=== PATIENT | male | born 1955 | race Caucasian/White ===

== ENCOUNTER 2020-07-01 13:52 | Outpatient (REF) | payer MEDICARE, MEDICAID, SELFPAY | END 2020-07-01 13:53 | disposition home or self-care (01) | LOC: HO.HAP 13:52 | PROVIDERS: Visit Provider Internal Medicine | DX: Z46.1 Encounter for fitting and adjustment of hearing aid (principal) | CPT/HCPCS: 92700 ==

== ENCOUNTER 2020-07-15 09:06 | Outpatient (REF) | payer MEDICARE, MEDICAID, SELFPAY ==
--- NOTE | 2020-07-15 10:29 | MHC.AU.P13 ---
Hearing Instrument Follow-Up- Binaural Date of Visit: 07/15/20 Right Ear: Student Assistance Counselor: Phonak Model: BOLERO B50-WA Serial Number: [id number] Warranty: 12/13/2019 Battery Size: Rechargeable Color: SANDALWOOD Tubing: #2 Type of Mold: SLIM TIP Dispensed By: [facility] Date of Fittin09/27/2017 Left Ear: Student Assistance Counselor: Phonak Model: BOLERO B50-WA Serial Number: [id number] Warranty: 12/13/2019 Battery Size: Rechargeable Color: SANDALWOOD Tubing: #2 Type of Mold: SLIM TIP [id number] Dispensed By: [facility] Date of Fittin09/27/2017 Follow-Up Summary: Patient arrived, accompanied by his aide, to merchandise pickup/receiving associate his right hearing aid with new slim tip attached. New slim tip fits well. At first, patient said he could not hear from the instrument. Otoscopy performed- partial cerumen occlusion that was likely lining up with the opening of the slim tip. A lighted disposable curette was used to remove cerumen without incidient. Patient reported the hearing aid sounded back to normal after cerumen removal. Recommendations: Hearing instrument follow-up or maintenance as needed. Patient's last audiological evaluation was 06/27/2019. His aide will request an order from the PCP for an updated audio eval. Diagnosis Code(s): Primary Diagnosis: H90.3 Bilateral Sensorineural Hearing Loss Secondary Diagnosis: N/A Signature: Provider: David Greene, [facility]
== END 2020-07-15 09:07 | disposition home or self-care (01) ==
LOC: HO.HAP 09:06
PROVIDERS: PCP Internal Medicine; Referring Provider Internal Medicine; Visit Provider Internal Medicine
DX: Z46.1 Encounter for fitting and adjustment of hearing aid (principal)
CPT/HCPCS: V5264

== ENCOUNTER 2020-10-14 08:29 | Outpatient (REF) | payer MEDICARE, MEDICAID, SELFPAY ==
--- NOTE | 2020-10-14 14:30 | MHC.AU.P13 ---
Adult Audiological Evaluation Date of Visit: 10/14/20 Reason for Appointment: Audiological evaluation to monitor the status of Mr. Petit's hearing loss. He denies any significant changes to his hearing or medical history. He notes that the left aid is currently not working. Previous Hearing Test Results: [facility], 06/27/2019- Mild sloping to moderately severe sensorineural hearing loss bilaterally. Ear History: History of Ear Wax Buildup: Both Ears Medical History: Medical History: Developmental Disorder/Delay Medication List: Fish Oil 2000mg, Calcium/Vitamin D 600/400, Omeprazole 20mg, Multivitamin, Escitalopram 20 mg, Atorvastatin 20 mg, Divalproex Sodium 1000mg Hearing Instrument History- Right Ear: Job Superintendent: [employer] Model: SlickLogin B50-AL Serial Number: [id number] Battery Size: Rechargeable Repair Warranty: 12/13/2019 Loss and Damage Warranty: 12/13/2019 Dispensed By: [facility] Date of Fittin09/27/2017 Hearing Instrument History- Left Ear: Job Superintendent: [employer] Model: SlickLogin B50-AL Serial Number: [id number] Battery Size: Rechargeable Warranty: 12/13/2019 Loss and Damage Warranty: 12/13/2019 Dispensed By: [facility] Date of Fittin09/27/2017 Otoscopy: Right Ear: Occluded with cerumen. Removed successfully with a lighted curette. Left Ear: Occluded with cerumen. Removed successfully with a lighted curette. Tympanometry: Tympanometry performed due to: To determine if cerumen blockage is fully occluding canal(s) Right Ear: Reduced Middle Ear Compliance (Type As) Left Ear: Reduced Middle Ear Compliance (Type As) Hearing Evaluation: Transducer(s) Used: Insert Earphones, Bone Conduction Method: Conventional Audiometry Stimuli Used: Pure Tones Right Ear: Description of Hearing: Mild sloping to moderately severe sensorineural hearing loss from 250-8000 Hz. Left Ear: Description of Hearing: Normal hearing from 250-500, sloping to a mild to moderate sensorineural hearing loss from 8586-5982 Hz. Speech Recognition Threshold (SRT): Method Used: Monitored Live Voice Stimuli Used: Spondee Words Right Ear: 35 dBHL Left Ear: 30 dBHL Word Discrimination: Method: Recorded Lists Word Lists Used: NU-6 Right Ear: 92% at 75 dBHL Left Ear: 92% at 75 dBHL Comparison: Compared to the most recent evaluation: Hearing is stable. Recommendations: Audiological re-evaluation in one year. New earmold was fit today. Reprogrammed aids and ran a new feedback test. Hearing aid maintenance was performed. Aids are in good working condition. Diagnosis: Primary Diagnosis: H90.3 Bilateral Sensorineural Hearing Loss Services Performed: Comprehensive Audiological Evaluation (CPT 15360) Tympanometry (CPT 77744) Signature: Provider: David Vincent, CCC-A
== END 2020-10-14 08:30 | disposition home or self-care (01) ==
LOC: HO.SH 08:29
PROVIDERS: Visit Provider Internal Medicine
DX: Z46.1 Encounter for fitting and adjustment of hearing aid (principal); H90.3 Sensorineural hearing loss, bilateral
CPT/HCPCS: 92557; 92567; 92593; 99499; V5264

== ENCOUNTER 2020-11-13 08:16 | Outpatient (REF) | payer MEDICARE, MEDICAID, SELFPAY ==
--- NOTE | 2020-11-13 10:01 | MHC.AU.P13 ---
Hearing Instrument Follow-Up- Binaural Date of Visit: 11/13/20 Right Ear: Power Generation Turbine Room Operator: Phonak Model: BOLERO B50-ID Serial Number: [id number] Repair Warranty: 12/13/2019 Loss and Damage Warranty: 12/13/2019 Battery Size: Rechargeable Color: SANDALWOOD Tubing: #2 Type of Mold: SLIM TIP [id number] Warranty: 02/06/2021 Left Ear: Power Generation Turbine Room Operator: Phonak Model: BOLERO B50-ID Serial Number: [id number] RepairWarranty: 12/13/2019 Loss and Damage Warranty: 12/13/2019 Battery Size: Rechargeable Color: SANDALWOOD Tubing: #2 Type of Mold: SLIM TIP [id number] Follow-Up Summary: Patient has been reporting that his left slim tip is causing pain. His aide also reported that he seems to have a difficult time putting in the left slim tip. He questioned if it is actually for the right ear, because it seems to be facing in the same way as the right slim tip. His aide also requested a new impression for the right side to improve the fit. Inspection revealed that it was a left-sided slim tip and a left-sided slim tube; however, the tubing looked like it had been twisted around, and was now stuck facing in a different position. A new size 2 slim tube was placed in the left slim tip. Otoscopy revealed a small amount of non-occluding cerumen bilaterally. No redness or swelling noted in canals. Impressions were taken bilaterally without incident. Recommendations: Patient's aide will be contacted when the new slim tips have arrived. Diagnosis Code(s): Primary Diagnosis: H90.3 Bilateral Sensorineural Hearing Loss Signature: Provider: David Greene, CCC-A
--- NOTE | 2020-12-04 13:02 | MHC.AU.MED ---
Medical Clearance for Hearing Instrumentation Date: 12/04/20 Patient Name: Edenilson Petit Date of : 1955 Referring Provider: Salvatore Jose MD We have seen your patient on 10/14/2020 and have determined that they are a candidate for amplification (See accompanying report). Specifically, they would benefit from: Hearing aid use in both ears There is a statute that addresses Medical Evaluation Requirements prior to fitting a patient with a hearing aid. According to [place] statute [facility] CMR:6.03(1), (a) General. Except as provided in 265 CMR 6.03(1)(b), a teacher hearing impaired shall not sell a hearing aid unless the prospective user has presented to the teacher hearing impaired a written statement signed by a licensed physician that states that the patient's hearing loss has been medically evaluated and the patient may be considered a candidate for a hearing aid. The medical evaluation must have taken place within the preceding six months. Please note: Due to the [place] Statute referenced above, we cannot accept a signature other than that of a licensed physician. BULLET SLUG CASTING MACHINE OPERATOR and PA signatures cannot be accepted. I am in agreement with the above recommendation. There is no medical contraindication for hearing instrumentation. Physician Signature Date Physician Name (Printed)
== END 2020-11-13 08:17 | disposition home or self-care (01) ==
LOC: HO.HAP 08:16
PROVIDERS: Visit Provider Internal Medicine
DX: Z46.1 Encounter for fitting and adjustment of hearing aid (principal); H90.3 Sensorineural hearing loss, bilateral
CPT/HCPCS: V5275

== ENCOUNTER 2020-12-18 08:54 | Outpatient (REF) | payer MEDICARE, MEDICAID, SELFPAY ==
--- NOTE | 2020-12-18 10:40 | MHC.AU.HFA ---
Hearing Instrument Fitting- Adult Date of Visit: 12/18/20 Hearing Instruments/Items Dispensed Today: Right Ear: Assembler Seat: [employer] Model: LaunchpilotsARMANI B50-NE Serial Number: [id number] Repair Warranty: 03/09/2024 Loss and Damage Warranty: 03/09/2024 Battery Size: Rechargeable Color: SANDALWOOD Crop Duster Helper: Tubing: #2 Type of Mold: SLIM TIP [id number] (Warranty of mold: 04/10/2021) Left Ear: Type of Mold: SLIM TIP [id number] (Warranty of mold: 04/10/2021) Summary of Fitting: Patient arrived to fit his new right-sided hearing aid, which is replacing the one that was lost. New molds were ordered for both instruments. The lost instrument was initially marked as the left side, when it was actually the right side that was lost. Programmed the new instrument for the right ear, and connected as same time as left so the instruments could communicate together. New slim tips were placed on the instruments. Patient reported the molds were much more comfortable. ACC codes entered for slim tips, and feedback real estate transaction manager re-run. He reported the sound quality was good. Recommendations: Recommendations: Hearing instrument maintenance as needed. Audiological re-evaluation recommended in November 2021. Diagnosis Code(s): Primary Diagnosis: H90.3 Bilateral Sensorineural Hearing Loss Signature: Provider: David Greene, CCC-A
== END 2020-12-18 08:55 | disposition home or self-care (01) ==
LOC: HO.HAP 08:54
PROVIDERS: Visit Provider Internal Medicine
DX: Z46.1 Encounter for fitting and adjustment of hearing aid (principal); H90.3 Sensorineural hearing loss, bilateral
CPT/HCPCS: V5011; V5241; V5257

== ENCOUNTER 2021-01-08 08:07 | Outpatient (REF) | payer MEDICARE, MEDICAID, SELFPAY ==
--- NOTE | 2021-01-08 16:07 | MHC.AU.HFU ---
Hearing Instrument Follow-Up- Binaural Date of Visit: 01/08/21 Right Ear: Security Systems Technician: Phonak Model: [facility] B50-AZ Serial Number: [id number] Repair Warranty: 03/09/2024 Loss and Damage Warranty: 03/09/2024 Battery Size: Rechargeable Color: SANDALWOOD Tubing: #2 Type of Mold: SLIM TIP [id number] Warranty: 04/10/2021 Left Ear: Security Systems Technician: Phonak Model: [facility] B50-AZ Serial Number: [id number] Repair Warranty: 12/13/2019 Loss and Damage Warranty: 12/13/2019 Battery Size: Rechargeable Color: SANDALWOOD Tubing: #2 Type of Mold: SLIM TIP [id number] Warranty: 04/10/2021 Follow-Up Summary: Patient reports that the new left-sided slim tip has been popping out of his ear. A new impression was taken of the left ear without incident. It will be sent to [employer] along with the slim tip for remake. Patient has the hearing aid itself, and has attached his old slim tip to it for the time being. Recommendations: Recommendations: Patient will be contacted when materials have arrived. Signature: Provider: David Greene, [facility]-A
== END 2021-01-08 08:08 | disposition home or self-care (01) ==
LOC: HO.HAP 08:07
PROVIDERS: Visit Provider Internal Medicine
DX: Z46.1 Encounter for fitting and adjustment of hearing aid (principal); H90.3 Sensorineural hearing loss, bilateral
CPT/HCPCS: V5275

== ENCOUNTER 2021-01-24 08:36 | Outpatient (REF) | payer MEDICARE, MEDICAID, SELFPAY ==
--- NOTE | 2021-01-24 08:58 | MHC.AU.HFU ---
Hearing Instrument Follow-Up- Binaural Date of Visit: 01/24/21 Right Ear: Radar Engineer: Phonak Model: BOLERO B50-WI Serial Number: [id number] Repair Warranty: 03/09/2024 Loss and Damage Warranty: 03/09/2024 Battery Size: Rechargeable Color: SANDALWOOD Tubing: #2 Type of Mold: SLIM TIP [id number] Warranty: 04/10/2021 Dispensed By: [facility] Date of Fittin09/27/2017 Left Ear: Radar Engineer: Phonak Model: BOLERO B50-W[place] Serial Number: [id number] Repair Warranty: 12/13/2019 Loss and Damage Warranty: 12/13/2019 Battery Size: Rechargeable Color: SANDALWOOD Tubing: #2 Type of Mold: SLIM TIP [id number] Warranty: 04/10/2021 Dispensed By: [facility] Date of Fittin09/27/2017 Follow-Up Summary: Patient was seen today for fitting of remade left slimtip earmold. New earmold was attached. Acoustic parameters were updated with the new ACC code and a new feedback test was run. Patient reports comfortable fit and sound quality. Earmold appears to stay in well and is secure. Old earmold returned to patient for back-up. Recommendations: Recommendations: Hearing instrument maintenance in 6 months, or sooner if needed. Please contact our clinic with any questions or concerns. Patient will call if problems persist. Diagnosis Code(s): Primary Diagnosis: H90.3 Bilateral Sensorineural Hearing Loss Signature: Provider: David Vincent, CCC-A
== END 2021-01-24 08:37 | disposition home or self-care (01) ==
LOC: HO.HAP 08:36
PROVIDERS: Visit Provider Internal Medicine
DX: Z13.89 Encounter for screening for other disorder (principal)

== ENCOUNTER 2022-05-11 13:45 | Outpatient (REF) | payer MEDICARE, MEDICAID, SELFPAY | END 2022-05-11 13:46 | disposition home or self-care (01) | LOC: HO.HAP 13:45 | PROVIDERS: Visit Provider Internal Medicine | DX: Z13.89 Encounter for screening for other disorder (principal) ==

== ENCOUNTER 2022-05-19 16:10 | Outpatient (REF) | payer MEDICARE, MEDICAID, SELFPAY | END 2022-05-19 16:11 | disposition home or self-care (01) | LOC: HO.HAP 16:10 | PROVIDERS: Visit Provider Internal Medicine | DX: Z13.89 Encounter for screening for other disorder (principal) ==

== ENCOUNTER 2022-05-28 09:46 | Outpatient (REF) | payer MEDICARE, MEDICAID, SELFPAY ==
--- NOTE | 2022-08-13 09:01 | MHC.AU.HFU ---
Hearing Instrument Follow-Up- Binaural Date of Visit: 05/28/22 Right Ear: Cargo Agent: Phonak Model: BOLERO B50-TN Serial Number: [id number] Battery Size: Rechargeable Dispensed By: [facility] Date of Fittin09/27/2017 Left Ear: Cargo Agent: Phonak Model: BOLERO B50-TN Serial Number: [id number] Battery Size: Rechargeable Dispensed By: [facility] Date of Fittin09/27/2017 Follow-Up Summary: Patient's left hearing aid had started producing feedback for the past few days. Today, he noticed a crack in the slim tube. The left slim tube was replaced. The mold and hearing aid were cleaned. No feedback noted with new slim tube. Recommendations: Recommendations: Hearing instrument follow-up or maintenance as needed. Diagnosis Code(s): Primary Diagnosis: H90.3 Bilateral Sensorineural Hearing Loss Signature: Provider: Ameena Greene, [facility]-A
== END 2022-05-28 09:47 | disposition home or self-care (01) ==
LOC: HO.HAP 09:46
PROVIDERS: Visit Provider Internal Medicine
DX: Z46.1 Encounter for fitting and adjustment of hearing aid (principal); H90.3 Sensorineural hearing loss, bilateral
CPT/HCPCS: 92592

== ENCOUNTER 2022-08-13 08:50 | Outpatient (REF) | payer MEDICARE, MEDICAID, SELFPAY ==
--- NOTE | 2022-08-13 11:28 | MHC.AU.HFU ---
Hearing Instrument Follow-Up- Binaural Date of Visit: 08/13/22 Right Ear: Emily Salguero B50-SD, #[id number] Repair Warranty: 03/09/2024 Loss and Damage Warranty: 03/09/2024 Battery Size: Rechargeable Tubing: #2 Dispensed By: [facility] Date of Fittin09/27/2017 Left Ear: Emily Hurtado0-SD, [id number] Repair Warranty: 12/13/2019 Loss and Damage Warranty: 12/13/2019 Battery Size: Rechargeable Tubing: #2 Dispensed By: [facility] Date of Fittin09/27/2017 Follow-Up Summary: Patient reports he has been getting feedback from his left hearing aid. When he moved his head around, significant feedback could be heard from the left side. Otoscopy performed- occluding cerumen bilaterally. Cerumen removal performed with a lighted disposable curette. Slight irritation noted in left canal afterwards. When patient tried the left hearing aid back on, there was no more feedback. Both hearing aids were inspected. Molds were cleaned. Slim tube was replaced in the left mold. When trying to remove the slim tube from the right mold, the tube snapped, leaving a portion stuck inside the mold. After numerous attempts and tools, this portion could not be removed without risking damage to the mold. A copy of the right mold will be ordered from [employer]. The right hearing aid will be kept in the repair drawer until the mold comes in. When it arrives, patient's residence can be contacted to pick it up- no appointment will be necessary. Diagnosis Code(s): H90.3 Bilateral Sensorineural Hearing Loss Signature: Provider: Ameena Greene, [facility]
== END 2022-08-13 08:51 | disposition home or self-care (01) ==
LOC: HO.HAP 08:50
PROVIDERS: Visit Provider Internal Medicine
DX: Z46.1 Encounter for fitting and adjustment of hearing aid (principal); H90.3 Sensorineural hearing loss, bilateral
CPT/HCPCS: 92593

== ENCOUNTER 2022-08-27 09:03 | Outpatient (REF) | payer MEDICARE, MEDICAID, SELFPAY ==
--- NOTE | 2022-08-28 08:06 | MHC.AU.MED ---
Medical Clearance for Hearing Instrumentation Date: 08/28/22 Patient Name: Edenilson Petit Date of : 1955 Referring Provider: Salvatore Jose MD We have seen your patient on 08/27/22 and have determined that they are a candidate for amplification (See accompanying report). Specifically, they would benefit from: Hearing aid use in both ears There is a statute that addresses Medical Evaluation Requirements prior to fitting a patient with a hearing aid. According to [place] statute [facility] CMR:6.03(1), (a) General. Except as provided in 265 CMR 6.03(1)(b), a hand cigar maker shall not sell a hearing aid unless the prospective user has presented to the hand cigar maker a written statement signed by a licensed physician that states that the patient's hearing loss has been medically evaluated and the patient may be considered a candidate for a hearing aid. The medical evaluation must have taken place within the preceding six months. Please note: Due to the [place] Statute referenced above, we cannot accept a signature other than that of a licensed physician. FOOD SERVICE HELPER and PA signatures cannot be accepted. I am in agreement with the above recommendation. There is no medical contraindication for hearing instrumentation. Physician Signature Date Physician Name (Printed)
--- NOTE | 2022-08-28 08:06 | MHC.AU.HA3 ---
Hearing Instrument Follow-Up- Binaural Date of Visit: 08/27/22 Right Ear: Make, Model, Color, Serial Number: Emily Salguero B50-NV, #[id number] Dispensed By: [facility] Date of Fitting: Originally Dispensed: 09/27/2017, Replacement Dispensed 12/18/2020 Left Ear (Currently Lost): Dank, Model, Color, Serial Number: Emily Salguero B50-NV, #[id number] Dispensed By: [facility] Date of Fittin09/27/2017 Follow-Up Summary: Patient was seen for audiological re-evaluation (see separate report for details). Patient recently lost his left hearing aid. He would have potentially been eligible for new hearing aids next month, since it would then be 5 years since the hearing aids were originally dispensed (on 09/27/2017). Additionally, this model of hearing aid is no longer being sold by the variety saw operator; therefore, we would be unable to get an instrument to match the right hearing aid. Hearing aids are designed to work together as a matching pair. When the models are different, the sound quality will be different in each ear, which can feel unbalanced, and the patient would unable to access many of the beneficial binaural features. We will seek prior authorization for a new pair of hearing aids. Impressions were taken bilaterally. If able to proceed, we will order a pair of Phonak Marlee P70-R in [address] [place] [address] with Microsonic M2000 Clear canal molds. The current right hearing aid with the new mold was returned to the patient. It fits well with no feedback noted. Recommendations: A prior authorization will be submitted to patient's insurance. If approved, the materials will be ordered. Patient's residence will be contacted when materials have arrived. Diagnosis Code(s): Primary Diagnosis: H90.3 Bilateral Sensorineural Hearing Loss Signature: Provider: Ameena Greene, VELA
== END 2022-08-27 09:04 | disposition home or self-care (01) ==
LOC: HO.SH 09:03
PROVIDERS: Visit Provider Internal Medicine
DX: H90.3 Sensorineural hearing loss, bilateral (principal)
CPT/HCPCS: 92557; 92567; V5264; V5275

== ENCOUNTER 2022-12-24 13:36 | Outpatient (REF) | payer MEDICARE, MEDICAID, SELFPAY ==
--- NOTE | 2022-12-24 15:13 | MHC.AU.HA2 ---
Hearing Instrument Fitting- Adult- Binaural Date of Visit: 12/24/22 Hearing Instruments Dispensed: Right Ear: Make, Model, Color, Serial Number: Emily Whalen P70-OK [place] #[id number] Parks And Recreation Manager Repair Warranty: 02/22/2026 Parks And Recreation Manager Loss and Damage Warranty: 02/22/2026 [facility] Service Plan: 12/25/2023 Battery Size: Rechargeable Earmold/Dome/CShell/SlimTip: Microsonic Cclhx-e-clym Clear Canal Left Ear: Make, Model, Color, Serial Number: Emily Whalen P70-OK [place] SN [id number] Parks And Recreation Manager Repair Warranty: 02/22/2026 Parks And Recreation Manager Loss and Damage Warranty: 02/22/2026 [facility] Service Plan: 12/24/2022 Battery Size: Rechargeable Earmold/Dome/CShell/SlimTip: Microsonic Pzoix-f-dhxp Clear Canal Summary of Fitting: Feedback qual field manager run. Verifit performed and levels adjusted to better reach targets. Target gain is at 100%. Patient was pleased with the sound of the instruments. Hearing aid care and maintenance were discussed and practiced. Patient has an older flip phone, but it does have Bluetooth. It was able to pair to the hearing aids, and a test phone call verified that it does work. Discussed that if he gets a new phone in the future, he could download the odette as well. Recommendations: Patient is an experienced hearing aid user and will call for follow-up as needed. Diagnosis Code(s): Primary Diagnosis: H90.3 Bilateral Sensorineural Hearing Loss Signature: Provider: Ameena Greene, [facility]
== END 2022-12-24 13:37 | disposition home or self-care (01) ==
LOC: HO.HAP 13:36
PROVIDERS: Visit Provider Internal Medicine
DX: H90.3 Sensorineural hearing loss, bilateral (principal); Z46.1 Encounter for fitting and adjustment of hearing aid
CPT/HCPCS: V5011; V5020; V5160; V5261; V5264

== ENCOUNTER 2023-06-04 07:58 | Outpatient (REF) | payer MEDICARE, MEDICAID, SELFPAY ==
--- NOTE | 2023-06-04 15:15 | MHC.AU.HA3 ---
Hearing Instrument Follow-Up- Binaural Date of Visit: 06/04/23 Right Ear: Dank, Model, Color, Serial Number: Emily Whalen P70-NM SN: [id number] Color: Beige Special Education Superintendent Repair Warranty: 02/22/2026 Special Education Superintendent Loss and Damage Warranty: 02/22/2026 [facility] Service Plan: 12/25/2023 Battery Size: Rechargeable Earmold/Dome/CShell/SlimTip:Microsonic Gjajg-o-nysu Clear Canal Dispensed By: [facility] Date of Fittin12/24/2022 Left Ear: Dank, Model, Color, Serial Number: Emily Whalen P70-NM SN: [id number] Color: Beige Special Education Superintendent Repair Warranty: 02/22/2026 Special Education Superintendent Loss and Damage Warranty: 02/22/2026 [facility] Service Plan: 12/25/2023 Battery Size: Rechargeable Earmold/Dome/CShell/SlimTip: Microsonic Acsej-i-qzzp Clear Canal Dispensed By: [facility] Date of Fittin12/24/2022 Follow-Up Summary: Edenilson was accompanied by his caregiver, Fadi who reported the hearing aids do not sit properly on Edenilson's ears and he is getting significant feedback. Tubing very hard and filled with moisture and wax. Fadi inquired about changing to slim tubes like Edenilson has had in the past. The slim tubes were reportedly easier to clean, sat better on Edenilson's ears, and were easier to insert. Impressions taken, bilaterally, without incident - will order new ear molds to fit slim tubes. Cleaned hearing aids and earmolds and replaced current TRS tubing for Edenilson to use in the meantime. When new molds arrive, will need to attach to slim tubes and schedule an appointment to attached slim tubes to hearing aids with subsequent reprogramming. Recommended wax removal by PCP prior to next appointment so real ear measures can be performed with new slim tubes and ear molds. Recommendations: Patient will be contacted when materials have arrived. Diagnosis Code(s): Primary Diagnosis: H90.3 Bilateral Sensorineural Hearing Loss Signature: Provider: Ameena Franco, [facility]
== END 2023-06-04 07:59 | disposition home or self-care (01) ==
LOC: HO.HAP 07:58
PROVIDERS: Visit Provider Internal Medicine
DX: Z13.89 Encounter for screening for other disorder (principal)

== ENCOUNTER 2023-07-13 08:30 | Outpatient (REF) | payer MEDICARE, MEDICAID, SELFPAY ==
--- NOTE | 2023-07-13 09:50 | MHC.AU.HA3 ---
Hearing Instrument Follow-Up- Binaural Date of Visit: 07/13/23 Right Ear: Dank, Model, Color, Serial Number: Emily Whalen P70-IN SN: [id number] Color: Beige Umbrella Frame Maker Repair Warranty: 02/22/2026 Umbrella Frame Maker Loss and Damage Warranty: USED 07/13/2023 [facility] Service Plan: 12/25/2023 Battery Size: Rechargeable Milling/Polishing Operator/Slim Tube: Size 2 slim tube Earmold/Dome/CShell/SlimTip:Phonak SlimTip Acrylic with canal lock Dispensed By: [facility] Date of Fittin12/24/2022 Left Ear: Dank, Model, Color, Serial Number: Emily Whalen P70-IN SN: [id number] Color: Beige Umbrella Frame Maker Repair Warranty: 02/22/2026 Umbrella Frame Maker Loss and Damage Warranty: USED 07/13/2023 [facility] Service Plan: 12/25/2023 Battery Size: Rechargeable Milling/Polishing Operator/Slim Tube: Size 2 slim tube Earmold/Dome/CShell/SlimTip: Phonak SlimTip Acrylic with canal lock Dispensed By: [facility] Date of Fittin12/24/2022 Follow-Up Summary: Edenilson arrived to fit his new slim tip ear molds with slim tubes to his hearing aids and have his hearing aids subsequently reprogrammed. However, when Edenilson arrived, accompanied by his pattern molder Fadi, they reported that Edenilson lost both his hearing aids. He signed a Replacement Request form which was faxed to [email or web address]. Edenilson's earmolds/slim tubes are still in the Earmolds drawer. Once the L&D replacements arrive, earmolds/slim tubes will be connected and an appointment will be scheduled for reprogramming with real ear measures. Recommendations: Patient will be contacted when materials have arrived. Recommendations (Other): Will need to bill for slim tips when fit at next appointment Diagnosis Code(s): Primary Diagnosis: H90.3 Bilateral Sensorineural Hearing Loss Signature: Provider: Ameena Franco, [facility]
== END 2023-07-13 08:31 | disposition home or self-care (01) ==
LOC: HO.HAP 08:30
PROVIDERS: Visit Provider Internal Medicine
DX: Z13.89 Encounter for screening for other disorder (principal)

== ENCOUNTER 2023-08-11 07:57 | Outpatient (REF) | payer MEDICARE, MEDICAID, SELFPAY ==
--- NOTE | 2023-08-11 08:26 | MHC.AU.HA3 ---
Hearing Instrument Follow-Up- Binaural Date of Visit: 08/11/23 Right Ear: Dank, Model, Color, Serial Number: Emily Whalen [id number] SN: [id number] Color: Beige Sheep Killer Repair Warranty: 02/22/2026 Sheep Killer Loss and Damage Warranty: USED 07/13/2023 [facility] Service Plan: 12/25/2023 Battery Size: Rechargeable Transportation Refrigeration Technician/Slim Tube: Size 2 slim tube Earmold/Dome/CShell/SlimTip:Phonak SlimTip Acrylic with canal lock Type of Wax Guard: Dispensed By: [facility] Date of Fittin12/24/2022 Left Ear: Dank, Model, Color, Serial Number: Emily Whalen [id number] SN: [id number] Color: Beige Sheep Killer Repair Warranty: 02/22/2026 Sheep Killer Loss and Damage Warranty: USED 07/13/2023 [facility] Service Plan: 12/25/2023 Battery Size: Rechargeable Transportation Refrigeration Technician/Slim Tube: Size 2 slim tube Earmold/Dome/CShell/SlimTip: Phonak SlimTip Acrylic with canal lock Type of Wax Guard: Dispensed By: [facility] Date of Fittin12/24/2022 Follow-Up Summary: Edenilson is here to supervisor picking crew his loss&damage replacements which are fit with new slimtubes and earmolds. Aids were programmed to reflect new acoustic properties and verified using real ear measurements. Discussed that aids seem loud as he has been without amplification for about a month and needs to get used to hearing through hearing aids again, can return for further adjustment if necessary. Paired to cell phone. Recommendations: Recommendations: Please contact our clinic with any questions or concerns. Diagnosis Code(s): Primary Diagnosis: H90.3 Bilateral Sensorineural Hearing Loss Signature: Provider: David Hoffmann, CCC-A
== END 2023-08-11 07:58 | disposition home or self-care (01) ==
LOC: HO.HAP 07:57
PROVIDERS: Visit Provider Internal Medicine
DX: Z46.1 Encounter for fitting and adjustment of hearing aid (principal); H90.3 Sensorineural hearing loss, bilateral
CPT/HCPCS: 92595; V5020; V5264

== ENCOUNTER 2024-11-30 10:19 | Outpatient (REF) | payer MEDICARE, MEDICAID, SELFPAY ==
--- OUTSIDE RECORDS SUMMARY | 2024-11-30 11:41 | XMS_ITS | Continuity of Care Document ---
Author Organization [facility] Waqas lt Address [address] [place] [id number]- Care Team Providers Care Lockstitch Front Maker Name Role Phone Rebeca GREEN, Salvatore Rodriguez Primary Care Physician Encounter [facility] Date(s): 10/30/24 - 11/29/24 [facility] [address] [place] [address]- Encounter Type: Triage Allergies, Adverse Reactions, Alerts No Known Allergies Immunizations Given and Recorded Vaccine Date Status Refusal Reason influenza virus vaccine, inactivated 1 07/25/24 Gi kamilla influenza virus vaccine, inactivated 2 08/20/22 Gi kamilla influenza virus vaccine, inactivated 06/28/21 Ganga rded influenza virus vaccine, inactivated 3 06/23/18 Gi kamilla influenza virus vaccine, inactivated 4 06/17/17 Re corded influenza virus vaccine, inactivated 07/02/16 Ganga rded influenza virus vaccine, inactivated 06/11/16 Ganga rded influenza virus vaccine, inactivated 06/20/15 Give n influenza virus vaccine, inactivated 06/13/14 Give n influenza virus vaccine, inactivated 06/20/13 Give n influenza virus vaccine, inactivated 06/02/11 Give n SARS-CoV-2(COVID-19)mRNA-LNP vac([id number]) 07/30/23 Recorded Influenza Virus Vaccine (oldterm) 07/20/23 Recorde d Influenza Virus Vaccine (oldterm) 05/30/20 Recorde d Influenza Virus Vaccine (oldterm) 06/02/19 Recorde d Influenza Virus Vaccine (oldterm) 06/21/08 Given Influenza Virus Vaccine (oldterm) 5 07/07/06 Given pneumococcal 20-valent conjugate vaccine 03/17/23 Given [id number] 12y+ bivalent booster vax 6 08/20/22 Given SARS-CoV-2 (COVID-19) mRNA-1273 vaccine 07/26/21 R ecorded SARS-CoV-2 (COVID-19) mRNA-1273 vaccine 11/25/20 R ecorded SARS-CoV-2 (COVID-19) mRNA-1273 vaccine 10/19/20 R ecorded Zoster Vaccine Live 11/15/19 Recorded zoster vaccine, inactivated 08/19/19 Recorded tetanus/diphtheria/pertussis, acel(Tdap) 7 10/21/17 Given Fluzone Preservative-Free (oldterm) 8 06/07/12 Giv en pneumococcal 23-valent vaccine 04/02/11 Given FluLaval (oldterm) 9 06/18/10 Given FluLaval (oldterm) 10 06/18/09 Given tetanus-diphtheria toxoids (Td) 11 10/05/07 Given tetanus-diphtheria toxoids (Td) 09/13/99 Given 1Result Comment: [facility]: 65676-195-26 2Result Comment: FLU [facility]# 20685-752-06 3Result Comment: [06/23/2018] 78781-787-19 4Result Comment: [06/18/2017] STOP&SHOP GIRMA 5Admin Note: GIVEN IN CLINIC SHAM 6Result Comment: Pfizer Bivalent- [facility]# [address]-2 7Result Comment: [10/21/2017] [facility] 60771-951-77 8Admin Note: vis given 9Admin Note: BIOMEDICAL CHARMAINE 10Admin Note: Biomedical Charmaine [facility] 11Admin Note: VIS GIVEN TO PATIENT. Medications calcium-vitamin D 600 mg-400 intl units oral tablet 1 tablet, By Mouth, Daily, # 28 tablet, 11 Refills, Maintenance, 05/17/24 11:15:00 AM EDT, [facility], 0, TAKE (1) TABLET BY MOUTH DAILY., 178, cm, 04/25/24 16:24:00 EDT, Height, 93.5, kg, 12/03/23 8:57:00 EDT, Dry Weight Start Date: 05/17/24 Status: Ordered Quantity: 28.0 Unit: tablet Repeat number: 1 Compression Stockings See Instructions, # 1 each, Maintenance, surgical, knee length 20-30 mm Hg, 01/31/24 7:27:00 AM EDT,Supply Start Date: 01/31/24 Status: Ordered Quantity: 1.0 Unit: each Repeat number: 1 Daily Latonia oral tablet 1 tablet, By Mouth, Daily, # 28 tablet, 5 Refills, Maintenance, 08/08/24 3:59:00 PM EST, [facility], 0, TAKE (1) TABLET BY MOUTH DAILY., 178, cm, 07/25/24 8:04:00 EST, Height, 90.9, kg,06/30/24 8:16:00 EDT, Dry Weight Start Date: 08/08/24 Status: Ordered Quantity: 28.0 Unit: tablet Repeat number: 1 Depakote ER 500 mg oral tablet, extended release 2 tablet = 1,000 mg, By Mouth, Daily, # 60 tablet, 11 Refills, Maintenance, 08/12/20 9:48:00 AM EST, ER Tablet, [facility], 180, cm, 08/12/20 9:32:00 EST, Height Start Date: 08/12/20 Stop Date: 08/07/21 Status: Ordered Quantity: 60.0 Unit: tablet Repeat number: 12 Fish Oil 1000 mg oral capsule 1 capsule, By Mouth, 2 times a day, # 56 capsule, 11 Refills, Maintenance, 02/22/24 2:20:00 PM EDT, [facility], 178, cm, 01/31/24 7:02:00 EDT, Height, 93.5, kg, 12/03/23 8:57:00 EDT, DryWeight Start Date: 02/22/24 Status: Ordered Quantity: 56.0 Unit: capsule Repeat number: 1 Golytely - oral powder for reconstitution See Instructions, Per instructions from GI., # 4,000 mL, 0 Refills, Maintenance, 05/25/24 9:30:00 AMEDT, [facility], Partial fill upon patient request if the prescription is for a schedule II opioid drug., Per instructions from GI., 178, cm, 05/25/24 8:51:00 EDT, Height, 93.5, kg, 12/03/23 8:57:00 EDT, Dry Weight Start Date: 05/25/24 Status: Ordered Quantity: 4000.0 Unit: mL Repeat number: 1 Indication: Encounter for screening for malignant neoplasm of colon Lexapro 20 mg oral tablet 1 tablet = 20 mg, By Mouth, Daily, Please ask for additional refills at your 04/20 office visit., # 30 tablet, 11 Refills, 08/12/20 9:48:[facility], 180, cm, 08/12/20 9:32:00EST, Height Start Date: 08/12/20 Stop Date: 08/07/21 Status: Ordered Quantity: 30.0 Unit: tablet Repeat number: 12 meloxicam 15 mg oral tablet 1 tablet = 15 mg, By Mouth, Daily, 0 Refills, Maintenance, 10/08/23 10:42:00 AM EST, Partial fill upon patient request if the prescription is for a schedule II opioid drug. Start Date: 10/08/23 Status: Ordered Repeat number: 1 Metamucil 3.4 gm/5.2 gm oral powder for reconstitution = 1.7 Gm, By Mouth, Daily, for 30 days, May increase to two or three times a day as needed., # 283 Gm, 2 Refills, Acute 02/21/25 8:31:00 AM EDT, 11/23/24 8:31:00 AM EDT, REC Powder, [facility], Partial fill upon patient request if the prescription is for a schedule II opioid drug., 178, cm, 11/23/24 8:06:00 EDT, Height, 90.9, kg, 06/30/24 8:16:00 EDT, Dry Weight Start Date: 11/23/24 Stop Date: 02/21/25 Status: Ordered Quantity: 283.0 Unit: g Repeat number: 3 Indication: Diarrhea, unspecified metFORMIN 500 mg oral tablet, extended release 4 tablet = 2,000 mg, By Mouth, Daily, # 112 tablet, 11 Refills, Maintenance, 04/24/24 8:30:00 AM EDT, ER Tablet, [facility], Partial fill upon patient request if the prescription is for a schedule II opioid drug., 178, cm, 04/24/24 8:00:00 EDT, Height, 93.5, kg, 12/03/23 8:57:00 EDT,Dry Weight Start Date: 04/24/24 Stop Date: 03/26/25 Status: Ordered Quantity: 112.0 Unit: tablet Repeat number: 12 omeprazole 20 mg oral enteric coated capsule 1 capsule, By Mouth, Daily, # 28 capsule, 5 Refills, Maintenance, 09/04/24 4:42:00 PM EST, [facility], 178, cm, 07/25/24 8:04:00 EST, Height, 90.9, kg, 06/30/24 8:16:00 EDT, Dry Weight Start Date: 09/04/24 Status: Ordered Quantity: 28.0 Unit: capsule Repeat number: 1 Prodigy Glucose Monitor Prodigy Glucose Monitor, See Instructions, # 1 each, Refills 0, Tot. Refills 0, Maintenance, Dx: Diabetic type 2 (E11.9) Use to check blood sugars once a day in the morning, fasting before you eat ordrink., 11/22/24 2:22:00 PM EDT, Supply, 178, cm, 07/25/24 8:04:00 EST, Height, 90.9, kg, 06/30/24 8:16:00 EDT, Dry Weight Start Date: 11/22/24 Status: Ordered Quantity: 1.0 Unit: each Repeat number: 1 Prodigy Lancets 28G Prodigy Lancets 28G, See Instructions, # 100 each, Refills 11, Tot. Refills 11, Maintenance, Dx: Diabetic type 2 (E11.9) Use to check blood sugars once a day in the morning, fasting before you eat ordrink., 11/22/24 2:22:00 PM EDT, Supply, 178, cm, 07/25/24 8:04:00 EST, Height, 90.9, kg, 06/30/24 8:16:00 EDT, Dry Weight Start Date: 11/22/24 Status: Ordered Quantity: 100.0 Unit: each Repeat number: 12 Prodigy Test Strips Prodigy Test Strips, See Instructions, # 100 each, Refills 11, Tot. Refills 11, Maintenance, Dx: Diabetic type 2 (E11.9) Use to check blood sugars once a day in the morning, fasting before you eat ordrink., 11/22/24 2:23:00 PM EDT, Supply, 178, cm, 07/25/24 8:04:00 EST, Height, 90.9, kg, 06/30/24 8:16:00 EDT, Dry Weight Start Date: 11/22/24 Status: Ordered Quantity: 100.0 Unit: each Repeat number: 12 rosuvastatin 40 mg oral tablet 1 tablet, By Mouth, Daily, # 28 tablet, 11 Refills, Maintenance, 02/22/24 2:20:00 PM EDT, [facility], 178, cm, 01/31/24 7:02:00 EDT, Height, 93.5, kg, 12/03/23 8:57:00 EDT, Dry Weight Start Date: 02/22/24 Status: Ordered Quantity: 28.0 Unit: tablet Repeat number: 1 Sutab oral tablet See Instructions, Take 12 tablets with 16 oz water the evening before, and another 12 tablets with 16 oz water on the morning of colonoscopy., # 1 kit, 0 Refills, Maintenance, 07/20/24 11:42:00 AM [facility], Partial fill upon patient request if the prescription is for a schedule II opioid drug., Take 12 tablets with 16 oz water the evening before, and another 12 tablets with 16 oz water on the morning of colonoscopy., 178, cm, 06/20/24 9:28:00 EDT, Height, 90.9, kg, 06/30/24 8:16:00 EDT, Dry Weight Start Date: 07/20/24 Status: Ordered Quantity: 1.0 Unit: kit Repeat number: 1 tamsulosin 0.4 mg oral capsule 0.4 mg, 1, capsule, By Mouth, Daily, # 30 capsule, Refills 0, Maintenance, 07/30/23 12:34:00 PM EST, Partial fill upon patient request if the prescription is for a schedule II opioid drug. Start Date: 07/30/23 Status: Ordered Quantity: 30.0 Unit: capsule Repeat number: 1 Problem List Condition Confirmation Course Effective Dates Status Health Status Informant BPH (benign prostatic hyperplasia) Confirmed Active Cervical myelopathy Confirmed Active Chronic ITP (idiopathic thrombocytopenia) Confirmed Active Cough Confirmed Active Diarrhea Confirmed Active Gastroesophageal reflux disease with hiatal hernia Confirmed Active History of hip fracture Confirmed Active History of cervical fracture Confirmed Active Hematuria 1 Confirmed Active Hypercholesterolemia Confirmed Active Impaired glucose tolerance Confirmed Active Incomplete right bundle branch block Confirmed Active Lumbar spondylosis Confirmed Active Depression, major, recurrent, in partial remission Confirmed Active Status post THR (total hip replacement) 2 Confirmed Active Type 2 diabetes mellitus without complications Confirmed Active 2012 no pathology 2b/l Social History Social History Type Response Smoking Status Never smoker entered on: 09/10/16 Sex Sex Representation Male (finding) Patient Care team information Care Team Personnel Name: Grazyna Renee RN Position: [facility] RN Member Role: Primary Care Nurse Name: Salvatore Cantu RN Position: [facility] RN Member Role: Primary Care Nurse Name: Salvatore Jose MD Position: [facility] Physician - Primary Care Member Role: PCP Address: [address] [place] [id number] Telecom: Name: Jessica Armstrong RN Position: [facility] RN Member Role: Primary Care Nurse Name: Bessy Storm RN Position: S RN Member Role: Primary Care Nurse Name: Radha Franklin RN Position: [facility] RN Member Role: Primary Care Nurse Care Team Related Persons Name: FRANKIE HEREDIA Name: URDDY KWOK Name: RUDDY KWOK Name: YAMILA TOLEDO Name: ALBERTO GUY Name: MOHSEN GUY Name: SANTY RUIZ Name: IVAN ALSTON Insurance Providers Guarantor name: SALEEM KWOK Health Plan Information #: 1 Payer: MEDICARE PART B OUTPT Member Number: NA Policy Number: NA Group Number: NA Health Plan Information #: 2 Payer: [facility] Member Number: NA Policy Number: NA Group Number: NA
--- OUTSIDE RECORDS SUMMARY | 2024-11-30 11:41 | XMS_ITS | Continuity of Care Document ---
Author Organization [facility] Waqas lt Address [address] [place] [address]- Care Team Providers Care Accounting Systems Manager Name Role Phone Rebeca GREEN, Salvatore Rodriguez Primary Care Physician Encounter [facility] Date(s): 10/23/24 - 11/22/24 [facility] [address] [place] [address]- Encounter Type: Triage Allergies, Adverse Reactions, Alerts [...] virus vaccine, inactivated 06/02/11 Give n SARS-CoV-2(COVID-19)mRNA-LNP vac([id number]) 07/30/23 Recorded Influenza Virus Vaccine (oldterm) 07/20/23 Recorde d Influenza Virus Vaccine (oldterm) 05/30/20 Recorde d Influenza Virus Vaccine (oldterm) 06/02/19 Recorde d Influenza Virus Vaccine (oldterm) 06/21/08 Given Influenza Virus Vaccine (oldterm) 5 07/07/06 Given pneumococcal 20-valent conjugate vaccine 03/17/23 Given [id number] 12y+ bivalent booster vax 6 08/20/22 Given [...] tetanus-diphtheria toxoids (Td) 09/13/99 Given 1Result Comment: [facility]: 96391-145-64 2Result Comment: FLU [facility]# [id number] 3Result Comment: [06/23/2018] [id number] 4Result Comment: [06/18/2017] STOP&SHOP GIRMA 5Admin Note: GIVEN IN CLINIC SHAM 6Result Comment: Pfizer Bivalent- [facility]# [id number] 7Result Comment: [10/21/2017] [facility] [id number] 8Admin Note: vis given 9Admin Note: BIOMEDICAL CHARMAINE 10Admin Note: Biomedical Charmaine [facility] 11Admin Note: VIS GIVEN TO PATIENT. [...] 4,000 mL, 0 Refills, Maintenance, 05/25/24 9:30:[facility], Partial fill upon patient request [...] Date: 10/08/23 Status: Ordered Repeat number: 1 metFORMIN 500 mg oral tablet, extended release [...] Refills, Maintenance, 02/22/24 2:20:00 PM EDT, [facility], 178, cm, 01/31/24 7:02:00 EDT, Height, 93.5, kg, 12/03/23 8:57:00 EDT, Dry Weight Start Date: 02/22/24 Status: Ordered Quantity: 28.0 Unit: tablet Repeat number: 1 Sutab oral tablet See Instructions, Take 12 tablets with 16 oz water the evening before, and another 12 tablets with 16 oz water on the morning of colonoscopy., # 1 kit, 0 Refills, Maintenance, 07/20/24 11:42:00 AM EST, [facility], Partial fill upon patient [...] 2 diabetes mellitus without complications Confirmed Active w/u 2012 no pathology 2b/l Social History Social History Type Response Smoking Status Never smoker entered on: 09/10/16 Sex Sex Representation Male (finding) Patient Care team information Care Team Personnel Name: Grazyna Renee RN Position: S RN Member Role: Primary Care Nurse Name: Salvatore Cantu RN Position: S RN Member Role: Primary Care Nurse Name: Salvatore Jose MD Position: [facility] Physician - Primary Care Member Role: PCP Address: [address] [place] [phone]- Telecom: Name: Jessica Armstrong RN Position: [facility] RN Member Role: Primary Care Nurse Name: Bessy Storm RN Position: S RN Member Role: Primary Care Nurse Name: Radha Franklin RN Position: [facility] RN Member Role: Primary Care Nurse Care Team Related Persons Name: FRANKIE HEREDIA Name: RUDDY KWOK Name: RUDDY KWOK Name: ALBERTO GUY Name: MOHSEN GUY Name: SANTY RUIZ Name: IVAN ALSTON Insurance Providers Guarantor name: SALEEM KWOK Health Plan Information #: 1 Payer: MEDICARE PART B OUTPT Member Number: NA Policy Number: NA Group Number: NA Health Plan Information #: 2 Payer: [place] Member Number: NA Policy Number: NA Group Number: NA
== END 2024-11-30 10:20 | disposition home or self-care (01) ==
LOC: HO.SH 10:19
PROVIDERS: Visit Provider Internal Medicine
DX: Z01.118 Encounter for examination of ears and hearing with other abnormal findings (principal); H90.3 Sensorineural hearing loss, bilateral
CPT/HCPCS: 92552; 92556; 92593; 99499

== ENCOUNTER 2025-04-04 08:13 | Outpatient (REF) | payer MEDICARE, MEDICAID, SELFPAY ==
--- OUTSIDE RECORDS SUMMARY | 2025-04-01 23:59 | XMS_ITS | Continuity of Care Document ---
Author Organization [facility] Address [address] [place] [address]- [facility] Name Relationship Address Phone ALECIA, IVAN sibling Unknown Unava ilable TRE, YAMILA Other Unknown Unavailable RUIZ, SANTY Other Unknown Unavailable PRZYBYLEK, MOHSEN unrelated friend Unknown Unavai lable PRZYBYLEK, ALBERTO Other Unknown Unavailabl e BLANK, SALEEM Personal Relationship Unknown Unavai lable BRIONNA, IVAN sibling Unknown Unavailable BLANK, SALEEM Personal Relationship Unknown Unavai lable BLANK, SALEEM Personal Relationship Unknown Unavai lable BLANK, SALEEM Personal Relationship Unknown Unavai lable BLANK, SALEEM Personal Relationship Unknown Unavai lable BLANK, RUDDY mother Unknown Unavailable BLANK, SALEEM Personal Relationship Unknown Unavai lable BLANK, SALEEM Personal Relationship Unknown Unavai lable YAN, FRANKIE sibling Unknown Unavailable BLANK, SALEEM Personal Relationship Unknown Unavai lable BLANK, RUDDY mother Unknown Unavailable BLANK, SALEEM Personal Relationship Unknown Unavai lable Care Team Providers Care Starter Mechanic Name Role Phone Salvatore Jose MD Primary Care Physician [phone] Encounter [facility] Date(s): 03/02/25 - 04/01/25 [facility] [address] [place] [address] Encounter Type: Triage Allergies, Adverse Reactions, Alerts [...] virus vaccine, inactivated 06/02/11 Give n SARS-CoV-2(COVID-19)mRNA-LNP vac([id number]) 07/30/23 Recorded Influenza Virus Vaccine (oldterm) 07/20/23 Recorde d Influenza Virus Vaccine (oldterm) 05/30/20 Recorde d Influenza Virus Vaccine (oldterm) 06/02/19 Recorde d Influenza Virus Vaccine (oldterm) 06/21/08 Given Influenza Virus Vaccine (oldterm) 5 07/07/06 Given pneumococcal 20-valent conjugate vaccine 03/17/23 Given [id number] 12y+ bivalent booster vax 6 08/20/22 Given [...] tetanus-diphtheria toxoids (Td) 09/13/99 Given 1Result Comment: [facility]: [id number] 2Result Comment: FLU [facility]# [id number] 3Result Comment: [06/23/2018] [id number] 4Result Comment: [06/18/2017] [facility]IR[facility] 5Admin Note: GIVEN IN CLINIC SHAM 6Result Comment: Pfizer Bivalent- [facility]# [id number] 7Result Comment: [10/21/2017] [facility] [id number] 8Admin Note: vis given 9Admin Note: BIOMEDICAL CHARMAINE 10Admin Note: [facility]ical [facility] [place] 11Admin Note: VIS GIVEN TO PATIENT. Medications Justin Link Easy Touch Lancing Device Justin Link Easy Touch Lancing Device, See Instructions, # 1 each, Refills 1, Tot. Refills 1, Maintenance, Dx: Diabetic Type 2 (E11.9) Use to check blood sugars once a day, 12/11/24 8:32:00 AM EDT, Supply, 178, cm, 11/23/24 8:06:00 EDT, Height, 90.9, kg, 06/30/24 8:16:00 EDT, Dry Weight Start Date: 12/11/24 Status: Ordered Quantity: 1.0 Unit: each Repeat number: 2 Justin Link Easy Touch Twist Lancets Justin Link Easy Touch Twist Lancets, See Instructions, # 100 each, Refills 11, Tot. Refills 11, Maintenance, Dx: Diabetic Type 2 (E11.9) Use to check blood sugars once a day, 12/11/24 8:30:00 AM EDT, Supply, 178, cm, 11/23/24 8:06:00 EDT, Height, 90.9, kg, 06/30/24 8:16:00 EDT, Dry Weight Start Date: 12/11/24 Status: Ordered Quantity: 100.0 Unit: each Repeat number: 12 Justin Link Test strips Justin Link Test strips, See Instructions, # 100 each, Refills 11, Tot. Refills 11, Maintenance, Dx: Diabetic Type 2 (E11.9) Use to check blood sugars once a day, 12/11/24 8:29:00 AM EDT, Supply, 178, cm, 11/23/24 8:06:00 EDT, Height, 90.9, kg, 06/30/24 8:16:00 EDT, Dry Weight Start Date: 12/11/24 Status: Ordered Quantity: 100.0 Unit: each Repeat number: 12 calcium-vitamin D 600 mg-400 intl units oral [...] Repeat number: 1 Daily Latonia oral tablet See Instructions, TAKE 1 TABLET BY MOUTH EVERY DAY, # 84 tablet, 1 Refills, Maintenance, 02/07/25 5:45:00 PM EDT, [facility], 90, TAKE 1 TABLET BY MOUTH EVERY DAY, 178, cm, 12/28/24 9:55:00 EDT,Height, 90.9, kg, 06/30/24 8:16:00 EDT, Dry Weight Start Date: 02/07/25 Status: Ordered Quantity: 84.0 Unit: tablet Repeat number: 1 Depakote ER 500 mg oral tablet, extended release 2 tablet = 1,000 mg, By Mouth, Daily, # 60 tablet, 11 Refills, Maintenance, 08/12/20 9:48:00 AM EST, ER Tablet, [facility], 180, cm, 08/12/20 9:32:00 EST, Height Start Date: 08/12/20 Stop Date: 08/07/21 Status: Ordered Quantity: 60.0 Unit: tablet Repeat number: 12 Golytely - oral powder for reconstitution See [...] Quantity: 4000.0 Unit: mL Repeat number: 1 Indications: Encounter for screening for malignant neoplasm of colon; Lexapro 20 mg oral tablet 1 tablet = 20 mg, By Mouth, Daily, Please ask for additional refills at your 04/20 office visit., # 30 tablet, 11 Refills, 08/12/20 9:48:00 AM EST, [facility], 180, cm, 08/12/20 9:32:00EST, Height [...] Date: 10/08/23 Status: Ordered Repeat number: 1 MetFORMIN (Eqv-Glucophage XR) 500 mg oral tablet, extended release See Instructions, TAKE 4 TABLETS BY MOUTH EVERY DAY, # 112 tablet, 5 Refills, Maintenance, 03/04/25 7:36:00 PM EDT, [facility], 178, cm, 12/28/24 9:55:00 EDT, Height, 90.9, kg, 06/30/24 8:16:00 EDT, Dry Weight Start Date: 03/04/25 Status: Ordered Quantity: 112.0 Unit: tablet Repeat number: 1 [place]-3 1000 mg oral capsule See Instructions, TAKE 1 CAPSULE BY MOUTH TWICE DAILY, # 56 capsule, 5 Refills, Maintenance, 03/04/25 7:36:00 PM EDT, [facility], 178, cm, 12/28/24 9:55:00 EDT, Height, 90.9, kg, 06/30/24 8:16:00 EDT, Dry Weight Start Date: 03/04/25 Status: Ordered Quantity: 56.0 Unit: capsule Repeat number: 1 omeprazole 20 mg oral enteric coated capsule See Instructions, TAKE 1 CAPSULE BY MOUTH EVERY DAY, # 28 capsule, 5 Refills, Maintenance, 03/04/25 7:36:00 PM EDT, [facility], 178, cm, 12/28/24 9:55:00 EDT, Height, 90.9, kg, 06/30/24 8:16:00 EDT, Dry Weight Start Date: 03/04/25 Status: Ordered Quantity: 28.0 Unit: capsule Repeat number: 1 rosuvastatin 40 mg oral tablet See Instructions, TAKE 1 TABLET BY MOUTH EVERY DAY, # 28 tablet, 5 Refills, Maintenance, 02/07/25 5:45:00 PM EDT, [facility], 178, cm, 12/28/24 9:55:00 EDT, Height, 90.9, kg, 06/30/24 8:16:00 EDT, Dry Weight Start Date: 02/07/25 Status: Ordered Quantity: 28.0 Unit: tablet Repeat [...] Quantity: 1.0 Unit: kit Repeat number: 1 Sutab oral tablet See Instructions, Take 24 tablets in 2 split doses as instructed by RIOS, # 24 tablet, 0 Refills, Maintenance, 02/21/25 2:35:00 PM EDT, [facility], Partial fill upon patient request if the prescription is for a schedule II opioid drug., Take 24 tablets in 2 split doses as instructed by RIOS, 178, cm, 12/28/24 9:55:00 EDT, Height, 90.9, kg, 06/30/24 8:16:00 EDT, Dry Weight Start Date: 02/21/25 Status: Ordered Quantity: 24.0 Unit: tablet Repeat number: 1 tamsulosin 0.4 mg oral [...] Hematuria 1 Confirmed Active Hypercholesterolemia Confirmed Active Impacted cerumen of both ears Confirmed Active Impaired glucose tolerance Confirmed Active Incomplete right bundle branch block Confirmed Active Lumbar spondylosis Confirmed Active Depression, major, recurrent, in partial remission Confirmed Active Status post THR (total hip replacement) 2 Confirmed Active Type 2 diabetes mellitus without complications Confirmed Active 1w/u 2012 no pathology 2b/l Social History Social History Type Response Smoking Status Never smoker entered on: 09/10/16 Sex Sex Representation Male (finding) Patient Care team information Care Team Personnel Name: Grazyna Renee RN Position: [facility] RN Member Role: Primary Care Nurse Name: Salvatore Cantu RN Position: S RN Member Role: Primary Care Nurse Name: Salvatore Jose MD Position: [facility] Physician - Primary Care Member Role: PCP Address: [address] [place] [id number] Telecom: Name: Jessica Armstrong RN Position: S RN Member Role: Primary Care Nurse Name: Bessy Storm RN Position: [facility] RN Member Role: Primary Care Nurse Name: Radha Franklin RN Position: [facility] RN Member Role: Primary Care Nurse Care Team Related Persons Name: FRANKIE HEREDIA Name: RUDDY KWOK Name: RUDDY KWOK Name: YAMILA TOLEDO Name: ALBERTO GUY Name: MOHSEN GUY Name: SANTY RUIZ Name: IVAN ALSTON Insurance Providers Guarantor name: SALEEM KWOK Health Plan Information #: 1 Payer: MEDICARE B Payer Identifier: NA Member Number: [id number] Group Number: NA Subscriber Identifier: [id number] Relationship to Subscriber: self Coverage Type: NA Coverage Verification Date: NA Telecom: NA Address: Replaced by [facility] Information #: 2 Payer: [employer]ER [employer] Payer Identifier: NA Member Number: [id number] Group Number: Subscriber Identifier: [id number] Relationship to Subscriber: self Coverage Type: MEDICAID Coverage Verification Date: NA Telecom: NA Address: NA
--- OUTSIDE RECORDS SUMMARY | 2025-04-03 23:59 | XMS_ITS | Continuity of Care Document ---
Author Organization [facility] Address [address] [place] [address]- Care Team Providers Care Food Technologist Name Role Phone Rebeca GREEN, Salvatore Rodriguez Primary Care Physician Encounter [facility] Date(s): 03/04/25 - 04/03/25 [facility] [address] [place] [id number]- Encounter Type: Triage Allergies, Adverse Reactions, Alerts [...] virus vaccine, inactivated 06/02/11 Give n SARS-CoV-2(COVID-19)mRNA-LNP vac([id number]) 07/30/23 Recorded Influenza Virus Vaccine (oldterm) 07/20/23 Recorde d Influenza Virus Vaccine (oldterm) 05/30/20 Recorde d Influenza Virus Vaccine (oldterm) 06/02/19 Recorde d Influenza Virus Vaccine (oldterm) 06/21/08 Given Influenza Virus Vaccine (oldterm) 5 07/07/06 Given pneumococcal 20-valent conjugate vaccine 03/17/23 Given [id number] 12y+ bivalent booster vax 6 08/20/22 Given [...] tetanus-diphtheria toxoids (Td) 09/13/99 Given 1Result Comment: [facility]: [id number] 2Result Comment: FLU [facility]# [id number] 3Result Comment: [06/23/2018] [id number] 4Result Comment: [06/18/2017] [facility]OP GIRMA 5Admin Note: GIVEN IN CLINIC SHAM 6Result Comment: Pfizer Bivalent- [facility]# [id number] 7Result Comment: [10/21/2017] [facility] [id number] 8Admin Note: vis given 9Admin Note: BIOMEDICAL CHARMAINE 10Admin Note: Biomedical Charm[facility] 11Admin Note: VIS GIVEN TO PATIENT. [...] 1 Refills, Maintenance, 02/07/25 5:45:00 PM EDT, [facility], 90, TAKE 1 TABLET BY MOUTH [...] 5 Refills, Maintenance, 03/04/25 7:36:00 PM EDT, [facility], 178, cm, 12/28/24 9:55:00 EDT, Height, 90.9, kg, 06/30/24 8:16:00 EDT, Dry Weight Start Date: 03/04/25 Status: Ordered Quantity: 112.0 Unit: tablet Repeat number: 1 [place]-3 1000 mg oral capsule See Instructions, TAKE 1 CAPSULE BY MOUTH TWICE DAILY, # 56 capsule, 5 Refills, Maintenance, 03/04/25 7:36:00 PM EDT, [facility], 178, cm, 12/28/24 9:55:00 EDT, Height, 90.9, kg, 06/30/24 8:16:00 EDT, Dry Weight Start Date: 03/04/25 Status: Ordered Quantity: 56.0 Unit: capsule Repeat number: 1 omeprazole 20 mg oral enteric coated capsule See Instructions, TAKE 1 CAPSULE BY MOUTH EVERY DAY, # 28 capsule, 5 Refills, Maintenance, 03/04/25 7:36:00 PM EDT, [facility], 178, cm, 12/28/24 9:55:00 EDT, Height, 90.9, kg, 06/30/24 8:16:00 EDT, Dry Weight Start Date: 03/04/25 Status: Ordered Quantity: 28.0 Unit: capsule Repeat number: 1 rosuvastatin 40 mg oral tablet See Instructions, TAKE 1 TABLET BY MOUTH EVERY DAY, # 28 tablet, 5 Refills, Maintenance, 02/07/25 5:45:00 PM EDT, [facility], 178, cm, 12/28/24 9:55:00 EDT, Height, [...] 0 Refills, Maintenance, 02/21/25 2:35:00 PM EDT, [facility], Partial fill upon patient request if [...] 2 diabetes mellitus without complications Confirmed Active /2012 no pathology 2b/l Social History Social History Type Response Smoking Status Never smoker entered on: 09/10/16 Sex Sex Representation Male (finding) Patient Care team information Care Team Personnel Name: Grazyna Renee RN Position: [facility] RN Member Role: Primary Care Nurse Name: Salvatore Cantu RN Position: [facility] RN Member Role: Primary Care Nurse Name: Salvatore Jose MD Position: [facility] Physician - Primary Care Member Role: PCP Address: [address] [place] [id number] Telecom: Name: Jessica Armstrong RN Position: [facility] RN Member Role: Primary Care Nurse Name: Bessy Storm RN Position: [facility] RN Member Role: Primary Care Nurse Name: Radha Franklin RN Position: [facility] RN Member Role: Primary Care Nurse Care Team Related Persons Name: FRANKIE HEREDIA Name: RUDDY KWOK Name: RUDDY KWOK Name: YAMILA TOLEDO Name: ALBERTO GUY Name: MOHSEN GUY Name: SANTY RUIZ Name: IVAN ALSTON Insurance Providers Guarantor name: SALEEM KWOK Health Plan Information #: 1 Payer: MEDICARE B Payer Identifier: TONI Member Number: [id number] Group Number: NA Subscriber Identifier: [id number] Relationship to Subscriber: self Coverage Type: NA Coverage Verification Date: NA Telecom: NA Address: [facility] Information #: 2 Payer: [facility] [employer] Payer Identifier: TONI Member Number: [id number] Group Number: NA Subscriber Identifier: [id number] Relationship to Subscriber: self Coverage Type: MEDICAID Coverage Verification Date: NA Telecom: TONI Address: NA
--- OUTSIDE RECORDS SUMMARY | 2025-04-04 08:25 | XMS_ITS | Clinical Summary ---
Author Organization [facility] Address [address] [place] [address] Phone Care Team Providers Care Industrial Electrician Name Role Phone Salvatore Jose MD Primary Care Provider [phone] Encounters Date Type Department Care Team Description 02/27/2025 10:30 AM EDT Office Visit [address] [place] [address] Alexys Ruiz PA Yount, Elizabeth B, PT Hip joint stiffness, bilateral (Primary Dx) 02/22/2025 11:30 AM EDT Office Visit [address] [place] [address] Alexys Ruiz PA Johndrow, Jennifer, PT Hip joint stiffness, bilateral (Primary Dx) 02/20/2025 10:30 AM EDT Office Visit [address] [place] [address] Alexys Ruiz PA Yount, Elizabeth B, PT Hip joint stiffness, bilateral (Primary Dx) 02/15/2025 11:15 AM EDT Office Visit [address] [place] [address] Alexys Ruiz PA Yount, Elizabeth B, PT Hip joint stiffness, bilateral (Primary Dx) 02/13/2025 11:15 AM EDT Office Visit [address] [place] [address] Alexys Ruiz, Staci Montoya, PT Hip joint stiffness, bilateral (Primary Dx) 02/08/2025 2:15 PM EDT Office Visit [facility] [address] [place] [address] Alexys Ruiz, EMBER Goff, Staci B, PT Hip joint stiffness, bilateral (Primary Dx) 01/30/2025 10:30 AM EDT Office Visit [facility] [address] [place] [address] Alexys Ruiz, EMBER Goff, Staci Chowdary, PT Hip joint stiffness, bilateral (Primary Dx) 01/23/2025 4:30 PM EDT Office Visit [address] [address] Alexys Ruiz, EMBER Goff, Staci Chowdary, PT Hip joint stiffness, bilateral (Primary Dx) 01/18/2025 3:00 PM EDT Office Visit [address] [place] [address] Alexys Ruiz, EMBER Goff, Staci Chowdary, PT Hip joint stiffness, bilateral (Primary Dx) 01/16/2025 4:30 PM EDT Office Visit [address] [place] [address] Alexys Ruiz, EMBER Goff, Staci Chowdary, PT Hip joint stiffness, bilateral (Primary Dx) 01/15/2025 Plan of Care Documentation [address] [place] [address] 01/11/2025 3:00 PM EDT Office Visit [address] [place] [address] Alexys Ruiz, Staci Montoya, PT Hip joint stiffness, bilateral (Primary Dx) from Last 3 Months Social History Tobacco Use Types Packs/Day Years Used Date Smoking Tobacco: Never Assessed Education Answer Date Recorded Are you interested in more education? Not on dustin e 12/19/2024 Are you concerned about learning? Not on file 12/19/2024 No 12/19/2024 No 12/19/2024 Digital Access Answer Date Recorded No 12/19/2024 No 12/19/2024 Reliable internet access at home? Not on file 12/19/2024 Device with a working camera? Not on file Sex and Gender Information Value Date Recorded Sex Assigned at Not on file Legal Sex Male 2:07 PM EDT Gender Identity Not on file Sexual Orientation Not on file Plan of Treatment Health Maintenance Due Date Last Done Comments Adult Td,Tdap Booster 1957 LIPID PANEL 1957 DEPRESSION SCREENING 1969 SMOKING Hx and SMOKELESS TOB ACCO SCREENING 1970 HEPATITIS C SCREENING 11/28/1975 COLOGUARD 2002 COLONOSCOPY 2002 COLORECTAL CANCER SCREENING 2002 FIT TEST 2002 FOBT 2002 SIGMOIDOSCOPY 2002 VIRTUAL COLONOSCOPY 2002 PNEUMOCOCCAL VACCINES (50+ y ears) (1 of 1 - PCV) 11/28/2007 ZOSTER VACCINES (1 of 2) 11/28/2007 COVID-19 VACCINE ( - 2023-2 5 season) 2024 RSV VACCINE (1 - 1-dose 75+ series) 2032 HEPATITIS A VACCINES Aged Out No long er eligible based on patient's age to complete this topic HIB VACCINES Aged Out No longer eligi ble based on patient's age to complete this topic MENINGOCOCCAL VACCINES (ACWY) Aged Out No longer eligible based on patient's age to complete this topic MENINGOCOCCAL VACCINES (B) Aged Out N o longer eligible based on patient's age to complete this topic Medical Devices Not on file Insurance [facility] & [facility] B [facility] Care Teams Industrial Electrician Relationship Specialty Start Date End Date Salvatore Jose MD [address] [place] [id number] PCP - General Internal Medicine 12/19/24 Additional Source Comments The information contained in this document represents components of the legal health record. It is not the complete legal health record.[facility]
--- OUTSIDE RECORDS SUMMARY | 2025-04-04 08:25 | XMS_ITS | Data Portability ---
Author Organization [place] [facility], [facility] Address [address] [place] [address] Care Team Providers Care Barrel Marker Name Role Phone MURALI CHAIREZ Primary Care Provider [phone] Assessment Encounter Date Assessment Date Assessment LastModified by Organization Details LastModified Time 03/28/2021 03/28/2021 Time On Scene with Patient: 00:52:41 DDX: UTI, pneumonia, COVID, viral illness, Pt appears non-toxic. He is afebrile - checked with DH thermometer and home thermometer. UA and labs done on scene unremarkable. Will proceed with COVID testing (vaccinated in 11/2020), and chest xray. Symptomatic care reviewed with patient and antoinette Rodriguez's COMMUNICATIONS SUPERVISOR. Re-evaluation precautions given for any worsening cough, shortness of breath or loss of appetite. Pt ambulating in his home at completion of visit. Resp easy skin pink warm dry. Not available 03/28/2021 15:19:03 Plan of Treatment Reminders Order Date Submit Date Provider Last Modified By Organization Details Last Modified Time Details Appointments None recorded. Lab urinalysis, dipstick 2020 021 [email or web address] [facility], [address] [place] [address], [address], 10:53:47 BMP + ionized calcium, serum or plasma 2020 021 astlauren t3 [facility] , [address] [place], [address], 14:44:57 unlisted lab - covid-19 (novel coronavirus ) PCR 2020 021 YOLIS [facility] (Centralized Electronic Ordering - All Locations), Patient Can Go To The Location Of Their Choice, [id number] 00:48:42 Referral None recorded. Procedures None recorded. Surgeries None recorded. Imaging XR, chest, 2 view - Ordered by [facility] - behavior, risk for transport 2020 021 YOLIS [facility] [address] [facility], [place], [address], 07:56:24 Medication Orders None recorded. Patient TargetsNo targets recorded. Patient Instructions Encounter Date Encounter Id Patient Instructions Last Modified By Organization Details Last Modified Time 03/28/2021 [id number] [facility] came to your home for evaluation of fever and malaise with a cough. We checked labs in the home and they were unremarkable. We ordered a chest xray to be done in the home. In order to meet our goal of providing quality urgent care in your home, your [facility] provider has ordered the following exam to be completed. The company we have partnered with that will be completing the exam listed above is: [employer] While you wait comfortably at home, you can expect a [employer] technologist to call you 30-45 minutes prior to arrival. Should you need to make special scheduling arrangements please call the number listed above and ask to speak with a [employer] dispatcher. For your convenience, you can also request your technologist s Estimated Time of Arrival (ETA) by calling the number listed above. Once requested, a [employer] dispatcher will call you back to let you know what time frame to expect the technologist to arrive within. Once your x-ray is completed, a radiologist will evaluate the test and interpret the results. Once the final report is [facility] from the reading radiologist a [facility] provider will call with the results. We also swabbed you for COVID. Please continue to drink plenty of fluids, rest and feel better. If you feel any worse, develop any shortness of breath, feel to weak to walk. chest pain, abdominal pain, nausea, vomiting, please go to the ED or get re-evaluated somehow. Not available 03/28/2021 10:55:07 Reason for Referral None Reported. Results Created Date Observation Date Name Description Value Unit Range Abnormal Flag Note LastModifiedBy Organization Detail LastModifiedTime 03/28/20 21 03/28/2021 urina lysis , dipst ick Appearance clear Not Available Spr - ome [address] [place], [address], 03/28/2021 10:51:48 03/28/20 21 03/28/2021 urina lysis , dipst ick Color dark yellow Not Available Spr - Home [address] [place], [address], 03/28/2021 10:51:48 03/28/20 21 03/28/2021 urina lysis , dipst ick Glucose (ref: neg) Neg Not Available Spr - Home [address] [place], [address], 03/28/2021 10:51:48 03/28/20 21 03/28/2021 urina lysis , dipst ick Bilirubin (ref: neg) Neg Not Available Spr - Home [address] [place], [address], 03/28/2021 10:51:48 03/28/20 21 03/28/2021 urina lysis , dipst ick Ketones (ref: neg) Neg Not Available Spr - Home [address] [place], [address], 03/28/2021 10:51:48 03/28/20 21 03/28/2021 urina lysis , dipst ick Specific [place] (ref: 1.003 - 1.035) 1.020 Not Available Spr - Home [address] [place], [address], 03/28/2021 10:51:48 03/28/20 21 03/28/2021 urina lysis , dipst ick Blood (ref: neg) Neg Not Available Spr - Home [address] [place], [address], 03/28/2021 10:51:48 03/28/20 21 03/28/2021 urina lysis , dipst ick pH (ref: 5-7) 5.0 Not Available Spr - Home [address] [place], [address], 03/28/2021 10:51:48 03/28/20 21 03/28/2021 urina lysis , dipst ick Protein (ref: neg) Neg Not Available [facility] [address] [place], [address], 03/28/2021 10:51:48 03/28/20 21 03/28/2021 urina lysis , dipst ick Nitrites (ref: neg) negati ve Not Available [facility] [address] [place], [address], 03/28/2021 10:51:48 03/28/20 21 03/28/2021 urina lysis , dipst ick Leukocytes (ref: neg) Neg Not Available [facility] [address], [place], [address], 03/28/2021 10:51:48 03/28/20 21 03/29/2021 COVID -19 (NOVE L CORON AVIRU S) PCR covid-19 PCR specimen source NASAL Not Available [facility] (Centralized Electronic Ordering - All Locations) Patient Can Go To The Location Of Their Choice, [id number] 03/30/2021 00:48:42 03/28/2003/30/2021 COVID -19 (NOVE L CORON AVIRU S) PCR covid-19 PCR result (neg) NEGAT ROZ 2019- novel Coron aviru s (2019 -nCoV ) not detec priyanka by real- time RT-PC R. Note: If clini romie suspi cion for COVID -19 is high, ramu nue to maint ain preca ution s and consi brenda repea t testi ng. Resul t repor priyanka to the [facility]. To preve nt error s in diagn osis, test resul ts shoul d be inter prete d in the faby xt of clini romie findi ngs and other labor atory data. Rare polym orphi sms exist that could lead to false -nega tive or false -posi tive resul ts. If resul ts obtai anabella do not match the clini romie findi ngs, addit ional testi radha shotommy d be consi dered . This test has been autho rized by the FDA under an Emerg ency Use Autho rizat ion (EUA) for use by autho rized labor atori es. Testi ng perfo rmed by real time PCR utili 3scale0 SARS- CoV-2 test. Not Available [facility] (Centralized Electronic Ordering - All Locations) Patient Can Go To The Location Of Their Choice, [id number] 03/30/2021 00:48:42 03/30/20 21 XR, chest , 2 view No observ ation record ed. [address] Corporate Office ([employer]) [address] [place], [address], 04/01/2021 14:51:04 Result Notes None recorded. Procedures Surgical History Date Name Laterality Status Provider Name and Address Organization Details Recorded Time 03/28/20 21 Venipuncture - DH completed SAGAR CHUA NP [address] [place], [address], [place] [facility] 03/28/2021 15:16:14 replacement of bilateral hip joints completed SAGAR CHUA NP [address] [place], [address], [place] [facility] 03/28/2021 10:25:52 Imaging Results None recorded. Procedure Notes None recorded. Medical Equipment None Reported. Allergies No known drug allergies Medications Name Sig Start Date Stop Date Status Note LastModified by Organization Details LastModified Time Depakote ER 500 mg tablet,ext ended release Take 1 tablet every day by oral route. active Not Available Not Available No t Available Lipitor active Not Available Not Avail able Not Available Fish Oil active Not Available Not Avai lable Not Available Lexapro active Not Available Not Avail able Not Available Vitals Date Recorded Body temperature Oxygen saturation Oxygen saturation in Arterial blood by Pulse oximetry Heart rate Respiratory rate Systolic And Diastolic Provider Name and Address Organization Details Last Updated DateTime 1 99.6 [degF] 89 % 89 % 84 /min 20 /min 132/74 mm[Hg] Not Available [facility] 10:26:25 Social History None recorded. Functional Status None recorded. Mental Status None recorded. Family History Nothing Reported. Medical History Condition Response Coronary Artery Disease N Cancer N Stroke N Depression Y COPD N Pulmonary Embolism N Hypertension N Kidney Disease N Past Encounters Encounter ID Performer Location Encounter Start Date Encounter Closed Date Diagnosis/Indication Diagnosis SNOMED-CT Code Diagnosis ICD10 Code Diagnosis Note [id number] SAGAR CHUA NP [facility] [address] [place] [address] 03/28/2021 10:19:54 04/02/2021 14:59:43 Fever 163361151 R50.9 Malaise and fatigue 2717 00711 R53.81 Exposure t o communicable disease 402888542 Z20.822 Health Concerns Section Related Observation LastModified by Organization Detai ls LastModified Time None Recorded Concern Status LastModified by Organization Details LastModified Time None Recorded Advance Directives Directive None Recorded Payers Insurance Date Sequence Insurance Name Policy Number Policy Sinclair Covered Member ID Sinclair Member ID Guarantor Name 04/03/2021 1 [place]IC[place] B-[place] [employer] Edenilson Petit [id number] Edenilson Petit 03/28/2021 1 *SELF PAY* Edenilson Petit [id number] Edenilson Petit 03/28/2021 2 [place] Edenilson Petit [id number] Edenilson Petit Notes Date Note Type Note Provider Name and Address Organization Details Recorded Time 03/28/2021 text/html 65 year-old male with history of cognitive delays, mood disorder, depression, HTN, HLD whose [facility]- calls to the home to evaluate patient for fever and fatigue. Yesterday patient got home from work ([employer]), and had a fever. He also had a congested cough. He went to bed early and when he woke up in the morning he had a fever and felt tired. He has been eating well. His bowel movement today was softer than usual but no other remarkable findings. He denies any urinary symptoms. He denies any chest pain, shortness of breath. He denies any abdominal pain, back pain or leg pain. He denies any recent trauma. He is feeling tired and sleepy. SAGAR CHUA NP [address] [place], [address], [place] [facility] 04/03/2021 21:05:03
--- NOTE | 2025-04-04 12:46 | MHC.AU.HA3 ---
Hearing Instrument Follow-Up- Binaural Date of Visit: 04/04/25 Right Ear: Dank, Model, Color, Serial Number: Emily Whalen [id number] SN: [id number] Color: Beige Dairy Nutrition Specialist Repair Warranty: 02/22/2026 Dairy Nutrition Specialist Loss and Damage Warranty: USED 07/13/2023 [employer] Service Plan: 12/25/2023 Battery Size: Rechargeable Herbologist/Slim Tube: Size 2 slim tube Earmold/Dome/CShell/SlimTip:Phonak SlimTip Acrylic with canal lock Dispensed By: [employer] Date of Fittin12/24/2022 Left Ear: Dank, Model, Color, Serial Number: Emily Whalen [id number] SN: [id number] Color: Beige Dairy Nutrition Specialist Repair Warranty: 02/22/2026 Dairy Nutrition Specialist Loss and Damage Warranty: USED 07/13/2023 [employer] Service Plan: 12/25/2023 Battery Size: Rechargeable Herbologist/Slim Tube: Size 2 slim tube Earmold/Dome/CShell/SlimTip: Phonak SlimTip Acrylic with canal lock Dispensed By: [employer] Date of Fittin12/24/2022 Follow-Up Summary: Right ALDRICH/EM dropped off reporting . Slim tube/EM occluded with wax. Cleaned ALDRICH (1). Cleaned EM (1). Replaced tubing (1). 27476 x3. Listening check demonstrated ALDRICH amplifying clearly. To front office for scrap picker. Recommendations: Hearing instrument follow-up or maintenance as needed. Please contact our clinic with any questions or concerns. Diagnosis Code(s): Primary Diagnosis: H90.3 Bilateral Sensorineural Hearing Loss Signature: Provider: Ameena Franco, CCC-A
== END 2025-04-04 08:14 | disposition home or self-care (01) ==
LOC: HO.HAP 08:13
PROVIDERS: Visit Provider Internal Medicine
DX: Z13.89 Encounter for screening for other disorder (principal)

== ENCOUNTER 2025-04-05 12:31 | Outpatient (REF) | payer MEDICARE, MEDICAID, SELFPAY ==
--- OUTSIDE RECORDS SUMMARY | 2025-04-05 12:53 | XMS_ITS | Clinical Summary ---
Author Organization [facility] Address [address] [place] [address] Phone Care Team Providers Care [facility] Worker Name Role Phone Salvatore Jose MD Primary Care Provider [phone] Encounters Date Type Department Care Team Description 02/27/2025 10:30 AM EDT Office Visit [address] [place] [address] Alexys Ruiz PA Yount, Elizabeth B, PT Hip joint stiffness, bilateral (Primary Dx) 02/22/2025 11:30 AM EDT Office Visit [address] [place] [address] Alexys Ruiz PA Johndrow, Jennifer, PT Hip joint stiffness, bilateral (Primary Dx) 02/20/2025 10:30 AM EDT Office Visit [address] [place] [address] Alexys Ruiz PA Yount, Elizabeth B, PT Hip joint stiffness, bilateral (Primary Dx) 02/15/2025 11:15 AM EDT Office Visit [address] [place] [address] Alexys Ruiz PA Yount, Elizabeth B, PT Hip joint stiffness, bilateral (Primary Dx) 02/13/2025 11:15 AM EDT Office Visit [address] [place] [address] Alexys Ruiz, Staci Montoya, PT Hip joint stiffness, bilateral (Primary Dx) 02/08/2025 2:15 PM EDT Office Visit [facility] [address] [place] [address] Alexys Ruiz, EMBER Goff, Staci B, PT Hip joint stiffness, bilateral (Primary Dx) 01/30/2025 10:30 AM EDT Office Visit [facility] [address] [place] [address] Alexys Ruiz, EMBER Goff, Staci Chowdary, PT Hip joint stiffness, bilateral (Primary Dx) 01/23/2025 4:30 PM EDT Office Visit [address] [address] Alexys Ruiz, EMBER Goff, Staci Chowdary, PT Hip joint stiffness, bilateral (Primary Dx) 01/18/2025 3:00 PM EDT Office Visit [address] [place] [address] Alexys Ruiz, EMBER Goff, Staci Chowdary, PT Hip joint stiffness, bilateral (Primary Dx) 01/16/2025 4:30 PM EDT Office Visit [address] [place] [address] Alexys Ruiz, EMBER Goff, Staci Chowdary, PT Hip joint stiffness, bilateral (Primary Dx) 01/15/2025 Plan of Care Documentation [address] [place] [address] 01/11/2025 3:00 PM EDT Office Visit [address] [place] [address] Alexys Ruiz, Staci Montoya, PT Hip joint [...] file Insurance MEDICARE PART A & B [facility] MED[facility] PART A & B [facility] MEDICARE [facility] A & B [facility] MEDIC[facility] PART A & B [facility] MEDIC[facility] PART A & B [facility] MEDICARE PART A & B [facility] Care Teams Child Day Care Center Worker Relationship Specialty Start Date End Date Salvatore Jose MD [address] [place] [id number] PCP - General Internal Medicine 12/19/24 Additional Source Comments The information contained in this document represents components of the legal health record. It is not the complete legal health record.[facility]
--- OUTSIDE RECORDS SUMMARY | 2025-04-05 12:54 | XMS_ITS | Data Portability ---
Author Organization [place] [facility], [facility] Address [address] [place] [address] Care Team Providers Care Campaign Developer Name Role Phone MURALI CHAIREZ Primary Care Provider Assessment Encounter Date Assessment Date Assessment LastModified [...] care reviewed with patient and antoinette Rodriguez's PRODUCTION SCHEDULER. Re-evaluation precautions given for any worsening cough, shortness of breath or loss of appetite. Pt ambulating in his home at completion of visit. Resp easy skin pink warm dry. Not available 03/28/2021 15:19:03 Plan of Treatment Reminders Order Date Submit Date Provider Last Modified By Organization Details Last Modified Time Details Appointments None recorded. Lab urinalysis, dipstick 2020 021 [email or web address] [facility], [address] [place] [address], [address], 10:53:47 BMP + ionized calcium, serum or plasma 2020 021 astlauren t3 [facility] , [address] [place], [address], 14:44:57 unlisted lab - covid-19 (novel coronavirus ) PCR 2020 021 YOLIS [facility] (Centralized Electronic Ordering - All Locations), Patient Can Go To The Location Of Their Choice, [address] 00:48:42 Referral None recorded. Procedures None recorded. Surgeries None recorded. Imaging XR, chest, 2 view - Ordered by [facility] include [facility] beds at the [facility] - behavior, risk for transport 2020 021 [facility]IS [facility] [employer]), [address] [facility], [place], [address], 07:56:24 Medication Orders None recorded. Patient TargetsNo targets recorded. Patient Instructions Encounter Date Encounter Id Patient Instructions Last Modified By Organization Details Last Modified Time 03/28/2021 [id number] [email or web address] came to your home for evaluation of fever and malaise with a cough. We checked labs in the home and they were unremarkable. We ordered a chest xray to be done in the home. In order to meet our goal of providing quality urgent care in your home, your [facility] provider has ordered the following exam to be completed. The company we have partnered with that will be completing the exam listed above is: [employer] While you wait comfortably at home, you can expect a [employer] technologist to call you 30-45 minutes prior to arrival. Should you need to make special scheduling arrangements please call the number listed above and ask to speak with a [employer] dispatcher. For your convenience, you can also request your technologist s Estimated Time of Arrival (ETA) by calling the number listed above. Once requested, a [employer] dispatcher will call you back to let you know what time frame to expect the technologist to arrive within. Once your x-ray is completed, a radiologist will evaluate the test and interpret the results. Once the final report is received by [facility] from the reading radiologist a [facility] provider will call with the results. We [...] Available Spr - ome [address] [place], [address], 03/28/2021 10:51:48 03/28/20 21 03/28/2021 urina lysis , dipst ick Color dark yellow Not Available Spr - Home [address] [place], [address], 03/28/2021 10:51:48 03/28/20 21 03/28/2021 urina lysis , dipst ick Glucose (ref: neg) Neg Not Available Spr - Home [address] [place], [address], 03/28/2021 10:51:48 03/28/20 21 03/28/2021 urina lysis , dipst ick Bilirubin (ref: neg) Neg Not Available Spr - Home [address] [place], [address], 03/28/2021 10:51:48 03/28/20 21 03/28/2021 urina lysis , dipst ick Ketones (ref: neg) Neg Not Available Spr - Home [address] [place], [address], 03/28/2021 10:51:48 03/28/20 21 03/28/2021 urina lysis , dipst ick Specific [place] (ref: 1.003 - 1.035) 1.020 Not Available Spr - Home [address] [place], [address], 03/28/2021 10:51:48 03/28/20 21 03/28/2021 urina lysis , dipst ick Blood (ref: neg) Neg Not Available Spr - Home [address] [place], [address], 03/28/2021 10:51:48 03/28/20 21 03/28/2021 urina lysis , dipst ick pH (ref: 5-7) 5.0 Not Available Spr - Home [address] [place], [address], 03/28/2021 10:51:48 03/28/20 21 03/28/2021 urina lysis , dipst ick Protein (ref: neg) Neg Not Available [facility] [address] [place], [address], 03/28/2021 10:51:48 03/28/20 21 03/28/2021 urina lysis , dipst ick Nitrites (ref: neg) negati ve Not Available [facility] [address] [place], [address], 03/28/2021 10:51:48 03/28/20 21 03/28/2021 urina lysis , dipst ick Leukocytes (ref: neg) Neg Not Available [facility] [address], [place], [address], 03/28/2021 10:51:48 03/28/20 21 03/29/2021 COVID -19 (NOVE L CORON AVIRU S) PCR covid-19 PCR specimen source NASAL Not Available [facility] (Centralized Electronic Ordering - All Locations) Patient Can Go To The Location Of Their Choice, [id number] 03/30/2021 00:48:42 03/28/2003/30/2021 COVID -19 (NOVE L [...] t repor priyanka to the [facility]. To preve nt error s in diagn [...] perfo rmed by real time PCR utili Tell[employer]0 SARS- CoV-2 test. Not Available [facility] (Centralized Electronic Ordering - All Locations) Patient Can Go To The Location Of Their Choice, [id number] 03/30/2021 00:48:42 03/30/20 21 XR, chest , 2 view No observ ation record ed. [address] Corporate Office ([employer]) [address] [place], [address], 04/01/2021 14:51:04 Result Notes None recorded. Procedures Surgical History Date Name Laterality Status Provider Name and Address Organization Details Recorded Time 03/28/20 21 Venipuncture - DH completed SAGAR CHUA NP [address] [place], [address], [place] [facility] 03/28/2021 15:16:14 replacement of bilateral hip joints completed SAGAR CHUA NP [address] [place], [address], [place] [facility] 03/28/2021 10:25:52 Imaging Results [...] /min 20 /min 132/74 mm[Hg] Not Available [facility] 10:26:25 Social History None recorded. Functional Status None recorded. Mental Status None recorded. Family History Nothing Reported. Medical History Condition Response Coronary Artery Disease N Pulmonary Embolism N Cancer N Stroke N Hypertension N Depression Y COPD N Kidney Disease N Past Encounters Encounter ID Performer Location Encounter Start Date Encounter Closed Date Diagnosis/Indication Diagnosis SNOMED-CT Code Diagnosis ICD10 Code Diagnosis Note [id number] SAGAR CHUA NP [facility] [address] [place] [address] 03/28/2021 10:19:54 04/02/2021 14:59:43 Fever 086200121 R50.9 Malaise and fatigue 2717 [address] R53.81 Exposure t o communicable disease 402970678 Z20.822 Health Concerns Section Related Observation LastModified by Organization Detai ls LastModified Time None Recorded Concern Status LastModified by Organization Details LastModified Time None Recorded Advance Directives Directive None Recorded Payers Insurance Date Sequence Insurance Name Policy Number Policy Sinclair Covered Member ID Sinclair Member ID Guarantor Name 04/03/2021 1 [place] [employer] Edenilson Petit [id number] Edenilson Petit 03/28/2021 1 *SELF PAY* Edenilson Petit [id number] Edenilson Petit 03/28/2021 2 [place] dEenilson Petit [id number] Edenilson Petit Notes Date Note Type Note Provider Name and Address Organization Details Recorded Time 03/28/2021 text/html 65 year-old male with history of cognitive delays, mood disorder, depression, HTN, HLD whose [facility]- calls to the home to evaluate [...] and sleepy. SAGAR CHUA NP [address] [place], [address], [place] [facility] 04/03/2021 21:05:03
== END 2025-04-05 12:32 | disposition home or self-care (01) ==
LOC: HO.HAP 12:31
PROVIDERS: Visit Provider Internal Medicine
DX: H90.3 Sensorineural hearing loss, bilateral (principal)
CPT/HCPCS: 99499

== ENCOUNTER 2025-08-01 14:14 | Outpatient (REF) | payer MEDICARE, MEDICAID, SELFPAY ==
--- OUTSIDE RECORDS SUMMARY | 2025-07-28 23:59 | XMS_ITS | Continuity of Care Document ---
Author Organization [facility] Waqas lt Address [address] [place] [address]- Care Team Providers Care Pool Hall Inspector Name Role Phone Rebeca GREEN, Salvatore Rodriguez Primary Care Physician Encounter [facility] Date(s): 06/28/25 - 07/28/25 [facility] Adult [address] [place] [address]- Encounter Type: Triage Allergies, Adverse Reactions, Alerts [...] virus vaccine, inactivated 06/02/11 Give n SARS-CoV-2(COVID-19)mRNA-LNP vac(pol128) 07/30/23 Recorded Influenza Virus Vaccine (oldterm) 07/20/23 Recorde d Influenza Virus Vaccine (oldterm) 05/30/20 Recorde d Influenza Virus Vaccine (oldterm) 06/02/19 Recorde d Influenza Virus Vaccine (oldterm) 06/21/08 Given Influenza Virus Vaccine (oldterm) 5 07/07/06 Given pneumococcal 20-valent conjugate vaccine 03/17/23 Given [id number] 12y+ bivalent booster vax 6 08/20/22 Given [...] tetanus-diphtheria toxoids (Td) 09/13/99 Given 1Result Comment: [facility]: [id number] 2Result Comment: FLU [facility]# [id number] 3Result Comment: [06/23/2018] 76305-414-85 4Result Comment: [06/18/2017] [employer] GIRMA 5Admin Note: GIVEN IN CLINIC SHAM 6Result Comment: Pfizer Bivalent- [facility]# [id number] 7Result Comment: [10/21/2017] [facility] 18843-014-06 8Admin Note: vis given 9Admin Note: BIOMEDICAL CHARMAINE 10Admin Note: Biomedical Charmaine [facility] 11Admin Note: VIS GIVEN TO PATIENT. Medications Audiogram- Hearing evalualtion Audiogram- Hearing evalualtion, See Instructions, # 1 each, Refills 0, Tot. Refills 0, Maintenance,eEval and treat for hearing loss, 06/22/25 3:56:00 PM EDT, Supply Start Date: 06/22/25 Status: Ordered Medication Dispense Status: Completed Quantity: 1.0 Unit: each Total Allowed Fills: 1 Fills Dispensed: 0 Justin Link Easy Touch Lancing Device Justin Link Easy Touch Lancing Device, See Instructions, # 1 each, Refills 1, Tot. Refills 1, Maintenance, Dx: Diabetic Type 2 (E11.9) Use to check blood sugars once a day, 12/11/24 8:32:00 AM EDT, Supply, 178, cm, 11/23/24 8:06:00 EDT, Height, 90.9, kg, 06/30/24 8:16:00 EDT, Dry Weight Start Date: 12/11/24 Status: Ordered Medication Dispense Status: Completed Quantity: 1.0 Unit: each Total Allowed Fills: 2 Fills Dispensed: 0 Justin Link Easy Touch Twist Lancets Justin Link Easy Touch Twist Lancets, See Instructions, # 100 each, Refills 11, Tot. Refills 11, Maintenance, Dx: Diabetic Type 2 (E11.9) Use to check blood sugars once a day, 12/11/24 8:30:00 AM EDT, Supply, 178, cm, 11/23/24 8:06:00 EDT, Height, 90.9, kg, 06/30/24 8:16:00 EDT, Dry Weight Start Date: 12/11/24 Status: Ordered Medication Dispense Status: Completed Quantity: 100.0 Unit: each Total Allowed Fills: 12 Fills Dispensed: 0 Justin Link Test strips Justin Link Test strips, See Instructions, # 100 each, Refills 11, Tot. Refills 11, Maintenance, Dx: Diabetic Type 2 (E11.9) Use to check blood sugars once a day, 12/11/24 8:29:00 AM EDT, Supply, 178, cm, 11/23/24 8:06:00 EDT, Height, 90.9, kg, 06/30/24 8:16:00 EDT, Dry Weight Start Date: 12/11/24 Status: Ordered Medication Dispense Status: Completed Quantity: 100.0 Unit: each Total Allowed Fills: 12 Fills Dispensed: 0 calcium-vitamin D 600 mg-400 intl units oral tablet 1 tablet, By Mouth, Daily, # 28 tablet, 11 Refills, Maintenance, 05/17/24 11:15:00 AM EDT, [facility], 0, TAKE (1) TABLET BY MOUTH DAILY., 178, cm, 04/25/24 16:24:00 EDT, Height, 93.5, kg, 12/03/23 8:57:00 EDT, Dry Weight Start Date: 05/17/24 Status: Ordered Medication Dispense Status: Completed Quantity: 28.0 Unit: tablet Total Allowed Fills: 1 Fills Dispensed: 0 Compression Stockings See Instructions, # 1 each, Maintenance, surgical, knee length 20-30 mm Hg, 01/31/24 7:27:00 AM EDT,Supply Start Date: 01/31/24 Status: Ordered Medication Dispense Status: Completed Quantity: 1.0 Unit: each Total Allowed Fills: 1 Fills Dispensed: 0 Daily Latonia oral tablet 1 tablet, By Mouth, Daily, # 90 tablet, 1 Refills, Maintenance, 07/27/25 6:19:00 AM EST, [facility], 90, TAKE 1 TABLET BY MOUTH EVERY DAY, 178, cm, 05/31/25 8:53:00 EDT, Height, 83.1, kg, 03/13/25 8:59:00 EDT, Dry Weight Start Date: 07/27/25 Status: Ordered Medication Dispense Status: Completed Quantity: 90.0 Unit: tablet Total Allowed Fills: 1 Fills Dispensed: 0 Depakote ER 500 mg oral tablet, extended release 2 tablet = 1,000 mg, By Mouth, Daily, # 60 tablet, 11 Refills, Maintenance, 08/12/20 9:48:00 AM EST, ER Tablet, [facility], 180, cm, 08/12/20 9:32:00 EST, Height Start Date: 08/12/20 Stop Date: 08/07/21 Status: Ordered Medication Dispense Status: Completed Quantity: 60.0 Unit: tablet Total Allowed Fills: 12 Fills Dispensed: 0 Lexapro 20 mg oral tablet 1 tablet = 20 mg, By Mouth, Daily, Please ask for additional refills at your 04/20 office visit., # 30 tablet, 11 Refills, 08/12/20 9:48:00 AM EST, [facility], 180, cm, 08/12/20 9:32:00EST, Height Start Date: 08/12/20 Stop Date: 08/07/21 Status: Ordered Medication Dispense Status: Completed Quantity: 30.0 Unit: tablet Total Allowed Fills: 12 Fills Dispensed: 0 meloxicam 15 mg oral tablet 1 tablet = 15 mg, By Mouth, Daily, 0 Refills, Maintenance, 10/08/23 10:42:00 AM EST, Partial fill upon patient request if the prescription is for a schedule II opioid drug. Start Date: 10/08/23 Status: Ordered Medication Dispense Status: Completed Total Allowed Fills: 1 Fills Dispensed: 0 metFORMIN 500 mg oral tablet, extended release 4 tablet, By Mouth, Daily, # 112 tablet, 5 Refills, Maintenance, 07/27/25 6:19:00 AM [facility], 178, cm, 05/31/25 8:53:00 EDT, Height, 83.1, kg, 03/13/25 8:59:00 EDT, Dry Weight Start Date: 07/27/25 Status: Ordered Medication Dispense Status: Completed Quantity: 112.0 Unit: tablet Total Allowed Fills: 1 Fills Dispensed: 0 Palmyra-3 1000 mg oral capsule 1 capsule, By Mouth, 2 times a day, # 56 capsule, 5 Refills, Maintenance, 07/27/25 6:20:00 AM [facility], [facility], 178, cm, 05/31/25 8:53:00 EDT, Height, 83.1, kg, 03/13/25 8:59:00 EDT, Dry Weight Start Date: 07/27/25 Status: Ordered Medication Dispense Status: Completed Quantity: 56.0 Unit: capsule Total Allowed Fills: 1 Fills Dispensed: 0 omeprazole 20 mg oral enteric coated capsule 1 capsule, By Mouth, Daily, # 28 capsule, 5 Refills, Maintenance, 07/27/25 6:20:00 AM EST, [facility], 178, cm, 05/31/25 8:53:00 EDT, Height, 83.1, kg, 03/13/25 8:59:00 EDT, Dry Weight Start Date: 07/27/25 Status: Ordered Medication Dispense Status: Completed Quantity: 28.0 Unit: capsule Total Allowed Fills: 1 Fills Dispensed: 0 rosuvastatin 40 mg oral tablet 1 tablet, By Mouth, Daily, # 28 tablet, 5 Refills, Maintenance, 06/28/25 9:53:00 AM EDT, [facility], 178, cm, 05/31/25 8:53:00 EDT, Height, 83.1, kg, 03/13/25 8:59:00 EDT, Dry Weight Start Date: 06/28/25 Status: Ordered Medication Dispense Status: Completed Quantity: 28.0 Unit: tablet Total Allowed Fills: 1 Fills Dispensed: 0 Sutab oral tablet See Instructions, Take 12 tablets with 16 oz water the evening before, and another 12 tablets with 16 oz water on the morning of colonoscopy., # 1 kit, 0 Refills, Maintenance, 06/06/25 12:39:00 PM EDT, [facility], Partial fill upon patient request if the prescription is for a schedule II opioiddrug., Take 12 tablets with 16 oz water the evening before, and another 12 tablets with 16 oz wateron the morning of colonoscopy., 178, cm, 05/31/25 8:53:00 EDT, Height, 83.1, kg, 03/13/25 8:59:00 EDT, Dry Weight Start Date: 06/06/25 Status: Ordered Medication Dispense Status: Completed Quantity: 1.0 Unit: kit Total Allowed Fills: 1 Fills Dispensed: 0 tamsulosin 0.4 mg oral capsule 0.4 mg, 1, capsule, By Mouth, Daily, # 30 capsule, Refills 0, Maintenance, 07/30/23 12:34:00 PM EST, Partial fill upon patient request if the prescription is for a schedule II opioid drug. Start Date: 07/30/23 Status: Ordered Medication Dispense Status: Completed Quantity: 30.0 Unit: capsule Total Allowed Fills: 1 Fills Dispensed: 0 Problem List Condition Confirmation Course Effective Dates [...] block Confirmed Active Lumbar spondylosis Confirmed Active Chronic hip pain, bilateral Confirmed Active Depression, major, recurrent, in partial remission Confirmed Active Status post THR (total hip replacement) 2 Confirmed Active Type 2 diabetes mellitus without complications Confirmed Active 1w/u 2012 no pathology 2b/l Social History Social History Type Response Smoking Status Never smoker entered on: 09/10/16 Sexual Orientation Self described orien tation: ; Straight or heterosexual Sex Sex Representation Male (finding) Patient Care team information Care Team Personnel Name: Grazyna Renee RN Position: [facility] RN Member Role: Primary Care Nurse Name: Salvatore Cantu RN Position: S RN Member Role: Primary Care Nurse Name: Carmela Cosby RN Position: [facility] RN Member Role: Primary Care Nurse Name: Salvatore Jose MD Position: [facility] Physician - Primary Care Member Role: PCP Address: [address] [place] [address] Telecom: Name: Jessica Armstrong RN Position: [facility] RN Member Role: Primary Care Nurse Name: Bessy Storm RN Position: S RN Member Role: Primary Care Nurse Name: Radha Franklin RN Position: [facility] RN Member Role: Primary Care Nurse Care Team Related Persons Name: FRANKIE HEREDIA Name: RUDDY KWOK Name: RUDDY KWOK Name: YAMILA TOLEDO Name: ALBERTO GUY Name: MOHSEN GUY Name: SANTY RUIZ Name: IVAN ALSTON Insurance Providers Guarantor name: SALEEM KWOK Health Plan Information #: 1 Payer: MEDICARE B Payer Identifier: TONI Member Number: [id number] Group Number: NA Subscriber Identifier: NA Relationship to Subscriber: self Coverage Type: NA Coverage Verification Date: NA Telecom: NA Address: On license of [facility] Information #: 2 Payer: [employer] Payer Identifier: NA Member Number: [id number] Group Number: [id number] Subscriber Identifier: NA Relationship to Subscriber: self Coverage Type: MEDICAID Coverage Verification Date: TONI Telecom: TONI Address: NA
--- NOTE | 2025-08-01 15:59 | MHC.AU.HA3 ---
Hearing Instrument Follow-Up- Binaural Date of Visit: 08/01/25 Right Ear: Dank, Model, Color, Serial Number: Emily Whalen [id number] SN: [id number] Color: Beige Custom Miller Repair Warranty: 02/22/2026 Custom Miller Loss and Damage Warranty: USED 07/13/2023 [facility] Service Plan: 12/25/2023 Battery Size: Rechargeable Recycler Forklift Driver Truck Driver/Slim Tube: Size 2 slim tube Earmold/Dome/CShell/SlimTip:Phonak SlimTip Acrylic with canal lock Type of Wax Guard: Dispensed By: [facility] Date of Fittin12/24/2022 Left Ear: Make, Model, Color, Serial Number: Emily Whalen [id number] SN: [id number] Color: Beige Custom Miller Repair Warranty: 02/22/2026 Custom Miller Loss and Damage Warranty: USED 07/13/2023 [facility] Service Plan: 12/25/2023 Battery Size: Rechargeable Recycler Forklift Driver Truck Driver/Slim Tube: Size 2 slim tube Earmold/Dome/CShell/SlimTip: Phonak SlimTip Acrylic with canal lock Type of Wax Guard: Dispensed By: [facility] Date of Fittin12/24/2022 Follow-Up Summary: Accompanied by home care associate, Harish. Right canal lock portion of EM broke and EM has subsequently been cutting ear. Also lost left ALDRICH/EM. Cleaned right ALDRICH (1). Cleaned EM (1). Replaced slim tube (1). 57338 x3. Vacuumed microphones. Ran through dehumidifier. Listening check demonstrated ALDRICH amplifying clearly. Buffed right EM to make it smoother to use in meantime. Ordered duplicate right EM via [facility]. Already has appt scheduled 09/11/2025 for updated hearing test to start process to replace lost left ALDRICH, as L&D has already been used. Recommendations: Patient will be contacted when materials have arrived. Diagnosis Code(s): Primary Diagnosis: H90.3 Bilateral Sensorineural Hearing Loss Signature: Provider: Ameena Franco, [facility]
--- OUTSIDE RECORDS SUMMARY | 2025-08-02 02:44 | XMS_ITS | Clinical Summary ---
Author Organization [facility] Address [address] [place] [phone] Phone Care Team Providers Care Sales Promotion Director Name Role Phone Salvatore Jose MD Primary Care Provider [phone] Social History Tobacco Use Types Packs/Day Years [...] 11/28/2007 ZOSTER VACCINES (1 of 2) 11/28/2007 INFLUENZA VACCINE (#1) 2025 COVID-19 VACCINE (1 - 2024-2 6 season) 2025 RSV VACCINE (1 - 1-dose 75+ series) 2032 HEPATITIS A VACCINES Aged Out No long er eligible based on patient's age to complete this topic HIB VACCINES Aged Out No longer eligi ble based on patient's age to complete this topic IPV VACCINES Aged Out No longer eligi ble based on patient's age to complete this topic MENINGOCOCCAL VACCINES (ACWY) Aged Out No longer eligible based on patient's age to complete this topic MENINGOCOCCAL VACCINES (B) Aged Out N o longer eligible based on patient's age to complete this topic Medical Devices Not on file Insurance MEDICARE PART A & B [facility] MEDIC[facility] PART [facility] & [facility] B [facility] MEDIC[facility] A & B [facility] & [facility] PART A & B [facility] Care Teams Sales Promotion Director Relationship Specialty Start Date End Date Salvatore Jose MD [address] [place] [id number] PCP - General Internal Medicine 12/19/24 Additional Source Comments The information contained in this document represents components of the legal health record. It is not the complete legal health record.[facility]
--- OUTSIDE RECORDS SUMMARY | 2025-08-02 02:44 | XMS_ITS | Data Portability ---
Author Organization [place] [facility], [facility] Address [address] [place] [address] Care Team Providers Care Control Director Name Role Phone MURALI CHAIREZ Primary Care Provider [phone] Assessment Encounter Date Assessment Date Assessment LastModified [...] care reviewed with patient and antoinette Rodriguez's GRAPHIC ENGINEER. Re-evaluation precautions given for any worsening cough, shortness of breath or loss of appetite. Pt ambulating in his home at completion of visit. Resp easy skin pink warm dry. Not available 03/28/2021 15:19:03 Plan of Treatment Reminders Order Date Submit Date Provider Last Modified By Organization Details Last Modified Time Details Appointments None recorded. Lab urinalysis, dipstick 2020 021 [email or web address] [facility], [address] [place] [address], [phone], 10:53:47 BMP + ionized calcium, serum or plasma 2020 021 [email or web address] [facility] , [address] [place], [address], 14:44:57 unlisted lab - covid-19 (novel coronavirus ) PCR 2020 021 YOLIS [facility] (Centralized Electronic Ordering - All Locations), Patient Can Go To The Location Of Their Choice, [id number] 00:48:42 Referral None recorded. Procedures None recorded. Surgeries None recorded. Imaging XR, chest, 2 view - Ordered by [facility] - behavior, risk for transport 2020 021 YOLIS [facility] [address] [facility], [place], [address], 07:56:24 Medication Orders None recorded. Patient TargetsNo targets recorded. Patient Instructions Encounter Date Encounter Id Patient Instructions Last Modified By Organization Details Last Modified Time 03/28/2021 [id number] [facility] came to your home for evaluation of fever and malaise with a cough. We checked labs in the home and they were unremarkable. We ordered a chest xray to be done in the home. In order to meet our goal of providing quality urgent care in your home, your [facility] provider has ordered the following exam to be completed. The company we have partnered with that will be completing the exam listed above is: [employer] While you wait comfortably at home, you can expect a [employer] technologist to call you 30-45 minutes prior to arrival. Should you need to make special scheduling arrangements please call the number listed above and ask to speak with a [employer] dispatcher. For your convenience, you can also request your technologist s Estimated Time of Arrival (ETA) by calling the number listed above. Once requested, a [employer] dispatcher will call you back to let you know what time frame to expect the technologist to arrive within. Once your x-ray is completed, a radiologist will evaluate the test and interpret the results. Once the final report is received by [employer] [facility] from the reading radiologist a [facility] provider will call with the results. We [...] Available Spr - ome [address] [place], [address], 03/28/2021 10:51:48 03/28/20 21 03/28/2021 urina lysis , dipst ick Color dark yellow Not Available Spr - Home [address] [place], [address], 03/28/2021 10:51:48 03/28/20 21 03/28/2021 urina lysis , dipst ick Glucose (ref: neg) Neg Not Available Spr - Home [address] [place], [address], 03/28/2021 10:51:48 03/28/20 21 03/28/2021 urina lysis , dipst ick Bilirubin (ref: neg) Neg Not Available Spr - Home [address] [place], [address], 03/28/2021 10:51:48 03/28/20 21 03/28/2021 urina lysis , dipst ick Ketones (ref: neg) Neg Not Available Spr - Home [address] [place], [address], 03/28/2021 10:51:48 03/28/20 21 03/28/2021 urina lysis , dipst ick Specific [place] (ref: 1.003 - 1.035) 1.020 Not Available Spr - Home [address] [place], [address], 03/28/2021 10:51:48 03/28/20 21 03/28/2021 urina lysis , dipst ick Blood (ref: neg) Neg Not Available Spr - Home [address] [place], [address], 03/28/2021 10:51:48 03/28/20 21 03/28/2021 urina lysis , dipst ick pH (ref: 5-7) 5.0 Not Available Spr - Home [address] [place], [address], 03/28/2021 10:51:48 03/28/20 21 03/28/2021 urina lysis , dipst ick Protein (ref: neg) Neg Not Available [facility] [address] [place], [address], 03/28/2021 10:51:48 03/28/20 21 03/28/2021 urina lysis , dipst ick Nitrites (ref: neg) negati ve Not Available [facility] [address] [place], [address], 03/28/2021 10:51:48 03/28/20 21 03/28/2021 urina lysis , dipst ick Leukocytes (ref: neg) Neg Not Available [facility] [address], [place], [address], 03/28/2021 10:51:48 03/28/20 21 03/29/2021 COVID -19 (NOVE L CORON AVIRU S) PCR covid-19 PCR specimen source NASAL Not Available [facility] (Centralized Electronic Ordering - All Locations) Patient Can Go To The Location Of Their Choice, [id number] 03/30/2021 00:48:42 03/28/2003/30/2021 COVID -19 (NOVE L [...] ng. Resul t repor priyanka to the [facility]. To preve nt error s in diagn [...] perfo rmed by real time PCR utili Skim[employer]0 SARS- CoV-2 test. Not Available [facility] (Centralized Electronic Ordering - All Locations) Patient Can Go To The Location Of Their Choice, [id number] 03/30/2021 00:48:42 03/30/20 21 XR, chest , 2 view No observ ation record ed. [address] Corporate Office ([employer]) [address] [place], [address], 04/01/2021 14:51:04 Result Notes None recorded. Procedures Surgical History Date Name Laterality Status Provider Name and Address Organization Details Recorded Time 03/28/20 21 Venipuncture - DH completed SAGAR CHUA NP [address] [place], [address], [place] [facility] 03/28/2021 15:16:14 replacement of bilateral hip joints completed SAGAR CHUA NP [address] [place], [address], [place] [facility] 03/28/2021 10:25:52 Imaging Results [...] /min 20 /min 132/74 mm[Hg] Not Available [facility] 10:26:25 Social History None recorded. Functional Status None recorded. Mental Status None recorded. Family History Nothing Reported. Medical History Condition Response Coronary Artery Disease N Cancer N Stroke N Depression Y COPD N Pulmonary Embolism N Hypertension N Kidney Disease N Past Encounters Encounter ID Performer Location Encounter Start Date Encounter Closed Date Diagnosis/Indication Diagnosis SNOMED-CT Code Diagnosis ICD10 Code Diagnosis IMO Codes Diagnosis Note [id number] SAGAR CHUA NP [facility] [address] [place] [address] 03/28/2021 10:19:54 04/02/2021 14:59:43 Fever 041471384 R50.9 Malaise and fatigue 2717 87935 R53.81 Exposure t o communicable disease 173286608 Z20.822 Health Concerns Section Related Observation LastModified by Organization Detai ls LastModified Time None Recorded Concern Status LastModified by Organization Details LastModified Time None Recorded Advance Directives Directive None Recorded Payers Insurance Date Sequence Insurance Name Policy Number Policy Sinclair Covered Member ID Sinclair Member ID Guarantor Name 04/03/2021 1 [place] [employer] Edenilson Petit [id number] Edenilson Petit 03/28/2021 1 *SELF PAY* Edenilson Petit [id number] Edenilson Petit 03/28/2021 2 [place] [facility] Edenilson Petit [id number] Edenilson Petit Notes Date Note Type Note Provider Name and Address Organization Details Recorded Time 03/28/2021 text/html 65 year-old male with history of cognitive delays, mood disorder, depression, HTN, HLD whose [facility]- calls to the home to evaluate patient [...] tired and sleepy. SAGAR CHUA NP [address], [place], [address], [place] [facility] 04/03/2021 21:05:03
== END 2025-08-01 14:15 | disposition home or self-care (01) ==
LOC: HO.HAP 14:14
PROVIDERS: Visit Provider Internal Medicine
DX: Z46.1 Encounter for fitting and adjustment of hearing aid (principal); H90.3 Sensorineural hearing loss, bilateral
CPT/HCPCS: 92592; 99499

== ENCOUNTER 2025-09-11 10:36 | Outpatient (REF) | payer MEDICARE, MEDICAID, SELFPAY ==
--- OUTSIDE RECORDS SUMMARY | 2025-09-07 23:59 | XMS_ITS | Continuity of Care Document ---
Author Organization [facility] Address [address] [place] [id number]- Care Team Providers Care Pension Fund Manager Name Role Phone Salvatore Jose MD Primary Care Physician [phone] Encounter [facility] Date(s): 08/08/25 - 09/07/25 [facility] Adult [address] [place] [address]- Encounter Type: Triage Allergies, Adverse Reactions, Alerts [...] virus vaccine, inactivated 06/02/11 Give n SARS-CoV-2(COVID-19)mRNA-LNP vac([id number]) 07/30/23 Recorded Influenza Virus Vaccine (oldterm) 07/20/23 Recorde d Influenza Virus Vaccine (oldterm) 05/30/20 Recorde d Influenza Virus Vaccine (oldterm) 06/02/19 Recorde d Influenza Virus Vaccine (oldterm) 06/21/08 Given Influenza Virus Vaccine (oldterm) 5 07/07/06 Given pneumococcal 20-valent conjugate vaccine 03/17/23 Given [id number] 12y+ bivalent booster vax 6 08/20/22 Given [...] tetanus-diphtheria toxoids (Td) 09/13/99 Given 1Result Comment: [facility]: 95829-250-10 2Result Comment: FLU [facility]# 42851-973-09 3Result Comment: [06/23/2018] 79171-054-88 4Result Comment: [06/18/2017] [facility] 5Admin Note: GIVEN IN [facility]IN[facility] 6Result Comment: Pfizer Bivalent- [facility]# [address]-2 7Result Comment: [10/21/2017] [facility] 88568-660-35 8Admin Note: vis given 9Admin Note: BIOMEDICAL CHARMAINE 10Admin Note: Biomedical Charmaine [facility] 11Admin Note: VIS GIVEN TO PATIENT. Medications [...] Refills, Maintenance, 05/17/24 11:15:00 AM EDT, [facility], 0, TAKE (1) TABLET BY MOUTH DAILY., [...] 1 Refills, Maintenance, 07/27/25 6:19:00 AM EST, [facility], 90, TAKE 1 TABLET BY MOUTH [...] tablet, 5 Refills, Maintenance, 07/27/25 6:19:00 AM [facility], 178, cm, 05/31/25 8:53:00 EDT, Height, 83.1, kg, 03/13/25 8:59:00 EDT, Dry Weight Start Date: 07/27/25 Status: Ordered Medication Dispense Status: Completed Quantity: 112.0 Unit: tablet Total Allowed Fills: 1 Fills Dispensed: 0 Wolcott-3 1000 mg oral capsule 1 capsule, By Mouth, 2 times a day, # 56 capsule, 5 Refills, Maintenance, 07/27/25 6:20:00 AM [facility], cm, 05/31/25 8:53:00 EDT, Height, 83.1, kg, 03/13/25 8:59:00 EDT, Dry Weight Start Date: 07/27/25 Status: Ordered Medication Dispense Status: Completed Quantity: 56.0 Unit: capsule Total Allowed Fills: 1 Fills Dispensed: 0 omeprazole 20 mg oral enteric coated capsule 1 capsule, By Mouth, Daily, # 28 capsule, 5 Refills, Maintenance, 07/27/25 6:20:00 AM EST, [facility], 178, cm, 05/31/25 8:53:00 EDT, Height, 83.1, kg, 03/13/25 8:59:00 EDT, Dry Weight Start Date: 07/27/25 Status: Ordered Medication Dispense Status: Completed Quantity: 28.0 Unit: capsule Total Allowed Fills: 1 Fills Dispensed: 0 rosuvastatin 40 mg oral tablet 1 tablet, By Mouth, Daily, # 28 tablet, 5 Refills, Maintenance, 06/28/25 9:53:00 AM EDT, [facility], 178, cm, 05/31/25 8:53:00 EDT, Height, [...] Maintenance, 06/06/25 12:39:00 PM EDT, [facility], Partial fill upon patient request if [...] Care Nurse Name: Salvatore Cantu RN Position: [facility] RN Member Role: Primary Care Nurse Name: Carmela Cosby RN Position: S RN Member Role: Primary Care Nurse Name: Salvatore Jose MD Position: S Physician - Primary Care Member Role: PCP Address: [address] [place] [phone]- Telecom: Name: Jessica Armstrong RN Position: S RN Member Role: Primary Care Nurse Name: Bessy Storm RN Position: S RN Member Role: Primary Care Nurse Name: Radha Franklin RN Position: [facility] RN Member Role: Primary Care Nurse Care Team Related Persons Name: FRANKIE HEREDIA Name: RUDDY KOWK Name: RUDDY KWOK Name: YAMILA TOLEDO Name: ALBERTO GUY Name: MOHSEN GUY Name: SANTY RUIZ Name: IVAN ALSTON Insurance Providers Guarantor name: SALEEM KWOK Health Plan Information #: 1 Payer: MEDICARE B Payer Identifier: [place] Member Number: [id number] Group Number: NA Subscriber Identifier: NA Relationship to Subscriber: self Coverage Type: NA Coverage Verification Date: NA Telecom: NA Address: [place] Health Plan Information #: 2 Payer: [employer] Payer Identifier: [place]ONI Member Number: [id number] Group Number: TONI Subscriber Identifier: TONI Relationship to Subscriber: self Coverage Type: MEDICAID Coverage Verification Date: TONI Telecom: TONI Address: [place]
--- OUTSIDE RECORDS SUMMARY | 2025-09-11 14:14 | XMS_ITS | Clinical Summary ---
Author Organization [facility] Address [address] [place] [phone] Phone Care Team Providers Care Model And Mold Maker Name Role Phone Salvatore Jose MD Primary Care Provider [phone] Social History Tobacco Use Types Packs/Day Years [...] file Insurance MEDICARE PART A & B [facility] MEDICARE PART A & B [facility] MEDICARE PART A & B [facility] MEDICARE PART A & B [facility] MEDICARE PART A & B [facility] MEDICARE PART A & B [facility] Care Teams Model And Mold Maker Relationship Specialty Start Date End Date Salvatore Jose MD [address] [place] [id number] PCP - General Internal Medicine 12/19/24 Additional Source Comments The information contained in this document represents components of the legal health record. It is not the complete legal health record.[facility]
== END 2025-09-11 10:37 | disposition home or self-care (01) ==
LOC: HO.SH 10:36
PROVIDERS: Visit Provider Internal Medicine
DX: H90.3 Sensorineural hearing loss, bilateral (principal)
CPT/HCPCS: 92557

== ENCOUNTER 2025-09-11 11:44 | Outpatient (REF) | payer SELFPAY | END 2025-09-11 11:45 | disposition home or self-care (01) | LOC: HO.HAP 11:44 | PROVIDERS: Visit Provider Internal Medicine | DX: H90.3 Sensorineural hearing loss, bilateral (principal) | CPT/HCPCS: V5264 ==